=== PATIENT | female | born 2000 | race Caucasian/White ===

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

== ENCOUNTER 2022-01-07 02:29 | Emergency (ER) | payer OTHER, SELFPAY ==
[2022-01-07 02:30] VITALS: BP 147/98; PULSE 100; RESP 18; TEMP 36.9; O2SAT 98; BMI 31.4
--- NOTE | 2022-01-07 02:40 | XR_ITS ---
PROCEDURE INFORMATION: Exam: XR Left Knee Exam date and time: 01/07/2022 2:40 AM Age: 21 years old Clinical indication: Injury or trauma; Fall; Blunt trauma; Knee; Left; Additional info: Skateboard fall TECHNIQUE: Imaging protocol: Radiologic exam of the Left knee. Views: 3 views. COMPARISON: No relevant prior studies available. FINDINGS: Bones/joints: No acute fracture or dislocation. Soft tissues: Mild soft tissue swelling of the anterior infrapatellar region. IMPRESSION: No acute fracture or dislocation.
--- NOTE | 2022-01-07 03:40 | HMH.EDLOEX ---
Discharge Plan Disposition Patient Disposition: Home, Self-Care Chief Complaint: Extremity Injury, Lower Prescriptions Prescriptions: No Action No Known Home Medications Referrals Follow up/Referrals: Yaya Richardson MD [Primary Care Provider] - See instructions Clinical Impressions Clinical Impression: Left knee sprain, Abrasion of knee, left Instructions Patient Instructions: Sprain, DI for Abrasion Discharge ED Provider: Yaya Richardson Lower Extremity Injury HPI General Chief Complaint: Extremity Injury, Lower Stated Complaint: AO@01/07@0215 injured left knee Time Seen by Provider: 01/07/22 03:15 Mode of Arrival: Family Vehicle Source of Information: Patient and Medical Record Limitations: No Limitations Description of Symptoms (Recalled from ER Triage Doc. by RN): Pt c/o pain and abrasion to left knee. States she was skatboarding down a hill when she hit rough ground and fell off. Denies hitting head or any LOC. Injury occured @ 0215. Pt c/o pain with bending knee and bearing weight on LLE. Small abrasion to L hand, pt denies any pain. Small amount of blood leaking from abrasion. History of Present Illness HPI Narrative: acute injury to lt knee this am complaint: knee injury Onset (ago): hour(s) Injury: Left: knee Type of Injury: blunt Place: street/outdoors Severity: moderate Exacerbating factors: movement Context: fall Associated symptoms: able to partially bear weight Other symptoms: none Related Data Home Medications Medication Instructions Recorded Confirmed No Known Home Medications 06/14/21 06/14/21 Allergies Allergy/AdvReac Type Severity Reaction Status Date / Time No Known Allergies Allergy Verified 12/10/20 14:24 PFSH PFSH Social History Smoking Status: Current every day smoker tobacco type: cigarettes packs per day: 1 second hand exposure: Yes alcohol intake: never substance use type: denies use current occupational status: unemployed Travel in the last 8 weeks: None household members: family housing: apartment ROS Obtained: Yes All systems reviewed & no additional complaints except as documented Physical Exam General General appearance: alert Head Head exam: normocephalic Eye Eye exam: Present PERRL and EOMI ENT ENT exam: Present mucous membranes moist Neck Neck exam: Present trachea midline Respiratory Respiratory exam: Absent respiratory distress Cardiovascular Cardiovascular exam: Present regular rate Abdominal Exam Abdominal exam: Present soft Expanded Lower Extremity Exam Left: Hip/Pelvis exam: Present pelvis stable Knee exam: Present tenderness, swelling, abrasion and knee extension intact; Absent full ROM Neurovascular/Tendon exam: Absent pulse deficit Neurological Exam Neurological exam: Present alert and CN II-XII intact Skin Skin exam: Present other (abrasion lt knee ) Medical Decision Making Medical Records Medical records reviewed: Yes I reviewed the patient's medical records. Jose Inquiry Pt receiving controlled substance: No Vital Signs: 01/07/22 02:30 Temperature 98.4 F Temperature Source Oral Pulse Rate [Right] 100 H Respiratory Rate 18 Blood Pressure [Right Arm] 147/98 H Blood Pressure Mean [Right Arm] 114 Blood Pressure Source [Right Arm] Automatic Cuff 02 Sat by Pulse Oximetry 98 Oxygen Delivery Method Room Air Lab Data Lab results reviewed: Yes I reviewed the patient's lab results. Orders (Tests/Meds): ORDERS Category Date Time Status XR knee LT 3V Stat Exams 01/07/22 02:40 Completed Radiology Data #1: Image(s): Knee Image Reviewed: Yes I have reviewed radiologist's interpretation Preliminary Findings: No Fracture Seen Medical Decision Narrative: has acute lt knee injury with abrasion but no fx Critical Care Time Critical Care Time Critical Care Time: No Attestation: On 01/07/22, the high probability of a clinically
[2022-01-07 04:25] VITALS: BP 140/80; PULSE 88; RESP 16; TEMP 36.8; O2SAT 99
== END 2022-01-07 04:27 | disposition home or self-care (01) ==
PROVIDERS: Emergency Provider Emergency Medicine; PCP Emergency Medicine
DX: S83.92XA Sprain of unspecified site of left knee, initial encounter (principal); S80.212A Abrasion, left knee, initial encounter; W18.39XA Other fall on same level, initial encounter; Y93.51 Activity, roller skating (inline) and skateboarding
CPT/HCPCS: 73562; 99283

== ENCOUNTER 2022-05-03 17:54 | Emergency (ER) | payer OTHER, SELFPAY ==
[2022-05-03 17:55] VITALS: BP 133/89; PULSE 68; RESP 16; TEMP 36.8; O2SAT 96; BMI 30.1
--- NOTE | 2022-05-03 18:48 | PC.NURSE ---
checked on pt in lobby advised we had emergencies, we would get them back as soon as possible
--- NOTE | 2022-05-03 19:17 | CT_ITS ---
PROCEDURE INFORMATION: Exam: CT Abdomen And Pelvis With Contrast Exam date and time: 05/03/2022 7:42 PM Age: 21 years old Clinical indication: Abdominal pain; Additional info: Left sided abd pain that radiates into lower back TECHNIQUE: Imaging protocol: Computed tomography of the abdomen and pelvis with contrast. Radiation optimization: All CT scans at this facility use at least one of these dose optimization techniques: automated exposure control; mA and/or kV adjustment per patient size (includes targeted exams where dose is matched to clinical indication); or iterative reconstruction. Contrast material: ISOVUE; Contrast volume: 75 ml; Contrast route: IV; COMPARISON: CT ABDOMEN PELVIS W CON 01/01/2020 8:55 PM FINDINGS: Liver: Normal. No mass. Gallbladder and bile ducts: No calcified stones. No ductal dilation. Pancreas: Normal enhancement. No ductal dilation. Spleen: No splenomegaly. Adrenal glands: No mass. Kidneys and ureters: No hydronephrosis. Stomach and bowel: No obstruction. No mucosal thickening. Appendix: No evidence of appendicitis. Intraperitoneal space: No significant fluid collection. No free air. Vasculature: No abdominal aortic aneurysm. Lymph nodes: No enlarged lymph nodes. Urinary bladder: No acute abnormality. Reproductive: No acute abnormality. Bones/joints: No acute fracture. Soft tissues: No soft tissue swelling. IMPRESSION: No acute findings.
[2022-05-03 19:22] LABS: Microscopic, Urine URINE MICROSCOPIC (MICROSCOPIC)
[2022-05-03 19:23] LABS: Appearance,Urine CLEAR (Clear); Blood, Urine 2+ (Negative); Color,Urine YELLOW (Yellow); Glucose,Urine (UA) Negative (Negative); Ketones,Urine TRACE (Negative); Leukocyte Esterase,Urine Negative (Negative); Nitrate,Urine Negative (Negative); Protein,Urine TRACE (Negative); Specific Gravity, Urine >= 1.030 (1.005-1.030); Urobilinogen,Urine 0.2 EU/dl (0.2)
[2022-05-03 19:24] LABS: Bilirubin,Urine 1+ (Negative)
[2022-05-03 19:25] LABS: Urine Pregnancy, HCG Qual. Negative (Negative)
[2022-05-03 19:32] VITALS: BP 108/61; PULSE 100; O2SAT 98
[2022-05-03 19:35] LABS: Basophils # 0.1 K/mm3 (0-0.2); Basophils % 0.8 % (0.1-2.0); Eosinophils # 0.4 K/mm3 (0.0-0.4); Eosinophils % 4.5 % (0.1-12.0); Hematocrit 39.6 % (37.0-47.0); Hemoglobin 13.4 g/dL (12.2-16.2); Lymphocytes # 2.5 K/mm3 (0.7-4.5); Mean Corpuscular HGB Conc 33.9 g/dL (31.8-35.4); Mean Corpuscular Hemoglobin 30.7 pg (27.0-31.2); Mean Corpuscular Volume 90.4 fl (81-99); Mean Platelet Volume 7.7 fl (7.4-10.4); Monocytes # 0.4 K/mm3 (0.1-1.0); Monocytes % 3.9 % (1.7-9.3); Neutrophils # 5.9 K/mm3 (1.8-7.8); Neutrophils % 63.8 % (37.0-80.0); Platelet Count 364 K/mm3 (142-424); Red Blood Count 4.38 M/mm3 (4.20-5.40); Red Cell Distribution Width 13.3 % (11.5-17.5); White Blood Count 9.2 K/mm3 (4.5-13.0)
[2022-05-03 19:37] LABS: Bacteria,Urine Trace /lpf; WBC,Urine Occasional #/hpf (0-3)
[2022-05-03 19:39] LABS: Chloride 108 mmol/L (98-107); Potassium 3.9 mmoL/L (3.5-5.1); Sodium 143 mmol/L (136-145)
--- NOTE | 2022-05-03 19:39 | PC.NURSE ---
Pt gone to RAD via wheelchair
[2022-05-03 19:42] LABS: Alanine Aminotransferase 27 U/L (12-78); Albumin Level 4.7 g/dl (3.5-5.0); Albumin/Globulin Ratio 1.4 (1.1-1.8); Alkaline Phosphatase 101 U/L (38-126); Amylase 78 U/L (30-110); Anion Gap 10.9 mEq/L (5-15); Aspartate Amino Transferase 24 U/L (14-36); Bilirubin,Total 0.5 mg/dl (0.2-1.3); Blood Urea Nitrogen 9 mg/dl (7-17); Carbon Dioxide 28 mmol/L (22.0-30.0); Creatinine Clearance Estimated 137 mL/min (50-200); Estimated Glomerular Filt Rate 107 ml/min (>60); GFR (African American) 129 ML/MIN (>60); Globulin 3.4 g/dL (1.3-3.2); Glucose 94 mg/dl (74-100); Lipase 51 U/L (23-300); Total Protein,Serum 8.1 g/dl (6.3-8.2)
--- NOTE | 2022-05-03 19:52 | PC.NURSE ---
Pt back from RAD
[2022-05-03 21:30] VITALS: BP 124/76; PULSE 76; O2SAT 100
[2022-05-03 22:30] VITALS: BP 123/83; PULSE 72; O2SAT 100
--- NOTE | 2022-05-03 23:19 | PC.NURSE ---
Pt called nurse station from her room and wanted to know how much longer it would be because she needs to get home to her son. After speaking with pt was informed that he would be in her room soon
--- NOTE | 2022-05-03 23:27 | HMH.EDABDPAI ---
Discharge Plan Disposition Patient Disposition: Home, Self-Care Chief Complaint: Abdominal Pain Prescriptions Prescriptions: No Action No Known Home Medications Referrals Follow up/Referrals: Eileen Obando APRN [Primary Care Provider] - See instructions Clinical Impressions Clinical Impression: Acute left flank pain Stand Alone Forms Stand Alone Forms: Work/School Release Instructions Patient Instructions: DI for Acute Abdominal Pain, DI for Flank Pain Discharge ED Provider: Yaya Richardson Abdominal Pain HPI General Chief Complaint: Abdominal Pain Stated Complaint: left side and back pain Time Seen by Provider: 05/03/22 23:27 Mode of Arrival: Ambulatory Source of Information: Patient and Medical Record Limitations: No Limitations Description of Symptoms (Recalled from ER Triage Doc. by RN): pt c/o lt flank pain and llq pain radiating to groin that started last night with diarrhea History of Present Illness HPI narrative: acute lt flank pain with rad to groin - has episode of loose stool- no vag bleeding MD complaint: abdominal pain Onset (ago): hour(s) Consistency: now resolved Location: L flank Severity: moderate Quality: sharp Radiation: L flank Associated symptoms: denies other symptoms Related Data Home Medications Medication Instructions Recorded Confirmed No Known Home Medications 06/14/21 06/14/21 Allergies Allergy/AdvReac Type Severity Reaction Status Date / Time No Known Allergies Allergy Verified 12/10/20 14:24 [facility] Disclaimer: The information contained in this section may have been updated after the patient was seen, as this information can be updated by other users. Social History Smoking Status: Current every day smoker tobacco type: cigarettes packs per day: 1 second hand exposure: Yes alcohol intake: never substance use type: denies use current occupational status: unemployed Travel in the last 8 weeks: None household members: family housing: apartment ROS Obtained: Yes All systems reviewed & no additional complaints except as documented Physical Exam General General appearance: alert Head Head exam: atraumatic Eye Eye exam: Present PERRL and EOMI ENT ENT exam: Present mucous membranes moist Neck Neck exam: Present trachea midline Respiratory Respiratory exam: Present normal lung sounds bilaterally; Absent respiratory distress Cardiovascular Cardiovascular exam: Present regular rate Abdominal Exam Abdominal exam: Present soft; Absent tenderness or guarding Extremities Exam Extremities exam: Present full ROM Back Exam Back exam: Absent CVA tenderness (L) Neurological Exam Neurological exam: Present alert, oriented X3 and CN II-XII intact Psychiatric Psychiatric exam: Present normal affect Skin Skin exam: Absent rash Medical Decision Making Medical Records Medical records reviewed: Yes I reviewed the patient's medical records. Ojse Inquiry Pt receiving controlled substance: No Vital Signs: 05/03/22 17:55 05/03/22 19:32 05/03/22 21:30 Temperature 98.3 F Temperature Source Oral Pulse Rate 100 H 76 Pulse Rate [Right] 68 Respiratory Rate 16 Blood Pressure 108/61 L 124/76 Blood Pressure [Right Arm] 133/89 Blood Pressure Mean [Right Arm] 103 02 Sat by Pulse Oximetry 96 98 100 Oxygen Delivery Method Room Air Room Air 05/03/22 22:30 Temperature Temperature Source Pulse Rate 72 Pulse Rate [Right] Respiratory Rate Blood Pressure 123/83 Blood Pressure [Right Arm] Blood Pressure Mean [Right Arm] 02 Sat by Pulse Oximetry 100 Oxygen Delivery Method Room Air Lab Data Lab results reviewed: Yes I reviewed the patient's lab results. Lab Results 05/03/22 19:12: Urine Color Yellow, Urine Appearance Clear, Urine pH 6.0, Ur Specific [place] >= 1.030, Urine Protein Trace, Urine Glucose (UA) Negative, Urine Ketones Trace, Urine Blood 2+, Urine Nitrate Negative, Urine Bilirubin 1+
[2022-05-03 23:32] VITALS: BP 129/87; PULSE 74; RESP 16; TEMP 36.7; O2SAT 99
== END 2022-05-03 23:36 | disposition home or self-care (01) ==
PROVIDERS: Family Medicine; Emergency Provider Emergency Medicine; PCP Nurse Practitioner Family
DX: R10.32 Left lower quadrant pain (principal); R10.2 Pelvic and perineal pain; R19.7 Diarrhea, unspecified; F17.210 Nicotine dependence, cigarettes, uncomplicated
CPT/HCPCS: 74177; 80053; 81001; 81025; 82150; 83690; 85025; 96361; 96374; 99285; Q9967

== ENCOUNTER 2022-05-20 23:16 | Emergency (ER) | payer OTHER, SELFPAY ==
[2022-05-20 23:17] VITALS: BP 157/82; PULSE 81; RESP 17; TEMP 36.9; O2SAT 99; BMI 30.1
--- NOTE | 2022-05-20 23:28 | XR_ITS ---
PROCEDURE INFORMATION: Exam: XR Right Ankle Exam date and time: 05/20/2022 11:45 PM Age: 21 years old Clinical indication: Pain; Ankle; Right; Additional info: Pain, swelling after fall TECHNIQUE: Imaging protocol: Radiologic exam of the Right ankle. Views: 3 or more views. COMPARISON: No relevant prior studies available. FINDINGS: Bones/joints: Unremarkable. Soft tissues: Circumferential soft tissue swelling is evident. IMPRESSION: 1. Circumferential soft tissue swelling is evident. 2. No acute fracture identified.
--- NOTE | 2022-05-20 23:28 | XR_ITS ---
PROCEDURE INFORMATION: Exam: XR Right Foot Exam date and time: 05/20/2022 11:47 PM Age: 21 years old Clinical indication: Pain; Foot; Right; Additional info: Pain, swelling after fall TECHNIQUE: Imaging protocol: Radiologic exam of the Right foot. Views: 3 or more views. COMPARISON: CR XR ANKLE RT MIN 3V 05/20/2022 11:45 PM FINDINGS: Bones/joints: Unremarkable. Soft tissues: Unremarkable. IMPRESSION: No acute findings.
[2022-05-20 23:30] VITALS: BP 149/81; PULSE 99; O2SAT 99
--- NOTE | 2022-05-20 23:58 | PC.NURSE ---
pt given an ice pack for her foot/ankle
[2022-05-21] VITALS: BP 136/85; PULSE 83; O2SAT 98
--- NOTE | 2022-05-21 00:05 | HMH.EDLOEX ---
Discharge Plan Disposition Patient Disposition: Home, Self-Care Prescriptions Prescriptions: No Action No Known Home Medications Referrals Follow up/Referrals: Yaya Richardson MD [Primary Care Provider] - See instructions Clinical Impressions Clinical Impression: Ankle sprain and strain Instructions Patient Instructions: DI for Ankle Sprain Discharge ED Provider: Dylan (ED)Yaya Lower Extremity Injury HPI General Chief Complaint: Extremity Injury, Lower Stated Complaint: Right ankle pain; AO 05/19/21 2300 Time Seen by Provider: 05/21/22 00:05 Mode of Arrival: Family Vehicle Source of Information: Patient and Medical Record Limitations: No Limitations Description of Symptoms (Recalled from ER Triage Doc. by RN): Pt c/o R ankle pain after is rolled while going down a few step last night. Pt stated this did occur at work, however is refusing to use workmans comp. She c/o bearing weight to R foot and reports mild swelling surrounding ankle. 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 Tenderness noted to ankle. Pedal pulse strong. History of Present Illness HPI Narrative: rt ankle pain walking down steps with pain and swelling and pain with wt bearing complaint: ankle injury Onset (ago): day(s) Injury: Right: ankle Type of Injury: eversion Place: work Severity: moderate Exacerbating factors: weight bearing and movement Context: walking Associated symptoms: swelling and able to partially bear weight Other symptoms: none Related Data Home Medications Medication Instructions Recorded Confirmed No Known Home Medications 06/14/21 05/20/22 Allergies Allergy/AdvReac Type Severity Reaction Status Date / Time No Known Allergies Allergy Verified 12/10/20 14:24 [facility] Disclaimer: The information contained in this section may have been updated after the patient was seen, as this information can be updated by other users. Social History Smoking Status: Current every day smoker tobacco type: cigarettes packs per day: 1 second hand exposure: Yes alcohol intake: never substance use type: denies use current occupational status: unemployed Travel in the last 8 weeks: None household members: family housing: apartment ROS Obtained: Yes All systems reviewed & no additional complaints except as documented Physical Exam General General appearance: alert Head Head exam: normocephalic Eye Eye exam: Present PERRL and EOMI ENT ENT exam: Present mucous membranes moist Neck Neck exam: Present trachea midline Respiratory Respiratory exam: Absent respiratory distress Cardiovascular Cardiovascular exam: Present regular rate Abdominal Exam Abdominal exam: Present soft Expanded Lower Extremity Exam Right: Lower leg exam: Present Achilles tendon intact Ankle exam: Present tenderness and swelling; Absent full ROM Foot/toe exam: Present normal inspection Neurological Exam Neurological exam: Present alert, oriented X3 and CN II-XII intact Psychiatric Psychiatric exam: Present normal affect Skin Skin exam: Absent rash Medical Decision Making Medical Records Medical records reviewed: Yes I reviewed the patient's medical records. Jose Inquiry Pt receiving controlled substance: No Vital Signs: 05/20/22 23:17 05/20/22 23:30 Temperature 98.4 F Temperature Source Oral Pulse Rate 99 H Pulse Rate [Right] 81 Respiratory Rate 17 Blood Pressure 149/81 H Blood Pressure [Right Arm] 157/82 H Blood Pressure Mean [Right Arm] 107 02 Sat by Pulse Oximetry 99 99 Oxygen Delivery Method Room Air Lab Data Lab results reviewed: Yes I reviewed the patient's lab results. Orders (Tests/Meds): ED MEDICATIONS Discontinued Medications Generic Name Dose Route Start Last Admin Trade Name Freq PRN Reason Stop Dose Admin Acetaminophen 650 mg 05/20/22 23:29 05/20/22 23:59 Acetaminophen 325mg Tab PO 05/20/22 23:30 650 mg ONCE ONE Administration ORDERS Cat
[2022-05-21 00:31] VITALS: BP 135/85; PULSE 82; RESP 18; TEMP 36.6; O2SAT 99
== END 2022-05-21 00:48 | disposition home or self-care (01) ==
PROVIDERS: Emergency Provider Emergency Medicine; PCP Emergency Medicine
DX: S93.401A Sprain of unspecified ligament of right ankle, initial encounter (principal); S96.911A Strain of unspecified muscle and tendon at ankle and foot level, right foot, initial encounter; F17.210 Nicotine dependence, cigarettes, uncomplicated; X50.0XXA Overexertion from strenuous movement or load, initial encounter; Y99.0 Civilian activity done for income or pay
CPT/HCPCS: 73610; 73630; 99284

== ENCOUNTER 2022-10-29 20:01 | Emergency (ER) | payer OTHER, SELFPAY ==
[2022-10-29 20:15] VITALS: BP 116/68; PULSE 96; RESP 14; TEMP 36.8; O2SAT 98; BMI 28.3
--- NOTE | 2022-10-29 20:21 | PC.NURSE ---
Dr. Robbins at [facility]
--- NOTE | 2022-10-29 20:26 | US_ITS ---
PROCEDURE INFORMATION: Exam: US Pelvis, Transvaginal, US Duplex Artery and Vein of the Reproductive Organs, Complete Exam date and time: 10/29/2022 9:01 PM Age: 21 years old Clinical indication: Menstruation abnormalities; Excessive menstruation; With irregular cycle; Additional info: Llq pain, h/o cysts LABS AND CLINICAL REPORTS: Last menstrual period start date: 10/26/2022 TECHNIQUE: Imaging protocol: Real-time transvaginal pelvic ultrasound with image documentation. Transvaginal imaging was used for better evaluation of the endometrium, adnexa, and/or cervix. Real-time duplex ultrasound scan of the arterial and venous flow of the abdominal and/or reproductive organs with B-mode, color Doppler flow and spectral waveform analysis with image documentation. Exam focused on the region of clinical concern. Complete exam. Duplex exam was performed to evaluate for vascular conditions. COMPARISON: No relevant recent comparison exams. FINDINGS: Uterus: Uterus measures 8.8 cm x 4.7 cm x 3.5 cm. Endometrial stripe thickness: Heterogeneously thickened endometrium measuring approximately 1.0 cm in the region of the fundus and 1.4 cm in the lower uterine segment/upper endocervical canal demonstrating debris, blood/fluid. Right ovary/adnexa: Right ovary measures 4.2 cm x 3.6 cm x 3.3 cm. Right ovarian volume is 25.8 mL. Simple appearing anechoic unilocular functional cyst/follicle in the RIGHT ovary without septations, debris or mural nodularity measuring 3.2 x 2.7 x 2.6 cm. Left ovary/adnexa: Left ovary measures 2.1 cm x 2.3 cm x 1.5 cm. Left ovarian volume is 3.7 mL. Dominant simple anechoic ovarian functional cyst/follicle measuring approximately 1.9 x 1.3 x 1.5 cm. Intraperitoneal space: No free fluid in the pelvis. IMPRESSION: 1. Heterogeneously thickened endometrium measuring 1 cm in the fundus and 1.4 cm in the lower uterine segment/endocervical canal with debris-blood and fluid. 2. Differential diagnosis includes retained products of conception, hormone replacement therapy, endometrial hyperplasia, endometritis, and less likely endometrial malignancy. 3. Enlarged RIGHT ovary demonstrating anechoic unilocular functional cyst/follicle and a dominant anechoic functional cyst/follicle in the LEFT ovary. 4. Both ovaries demonstrate blood flow on Doppler sonogram.
--- NOTE | 2022-10-29 20:26 | PC.NURSE ---
xray notified of transvaginal ultrasound
--- NOTE | 2022-10-29 20:29 | HMH.EDGENADL ---
Discharge Plan Disposition Patient Disposition: Home, Self-Care Condition: Good Prescriptions Prescriptions: New naproxen 500 mg tablet 500 mg PO BID 7 Days Qty: 14 0RF Referrals Follow up/Referrals: Provider,Referral, [Primary Care Provider] - See instructions Activity Restrictions/Add. Instructions Additional Instructions/Restrictions: You were evaluated in the emergency department today. It is very important that you keep your outpatient follow-up with gynecology in the morning. 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 Return to the emergency department for any new or worsening symptoms, such as increasing bleeding, lightheadedness, or other concerns. Clinical Impressions Clinical Impression: DUB (dysfunctional uterine bleeding) Instructions Patient Instructions: DI for Vaginal Bleeding Discharge ED Provider: Rosalva Robbins General Adult HPI General Chief complaint: Vaginal Bleeding Stated complaint: vaginal bleeding Time Seen by Provider: 10/29/22 20:06 Mode of Arrival: Ambulatory Source of Information: Patient Limitations: No Limitations Description of Symptoms (Recalled from ER Triage Doc. by RN): pt states her LMP was October 20 that lasted approximately 4d then stopped. pt states she woke up on October 25 in a puddle of blood with excessive clots. pt states she has been having abnormal vaginal bleeding since. pt does c/o LLQ abd pain with rebound tenderness. per the chart pt has a hx of ovarian cysts and has an appointment with Dr. Araya tomorrow History of Present Illness HPI narrative: This patient is a 21-year-old female with history of ovarian cysts presenting to the emergency department for evaluation with concern for abnormal vaginal bleeding and left lower quadrant abdominal pain. She states that she has a Nexplanon implant in her arm. Her last menstrual period was October 20 and only lasted for approximately 4 days. It was normal for her. She states that she started bleeding again on 10/25/2022. She states that she has been soaking through a pad every 10 to 20 minutes. She states that she has a lot of clots and it is much heavier than her usual periods. She has a appointment with [facility] tomorrow but decided to come in today for further evaluation and management because she was concerned about the left lower quadrant abdominal pain. She denies any fevers, chills, lightheadedness, or other concerns. Related Data Previous Rx's Medication Instructions Recorded naproxen 500 mg tablet 500 mg PO BID 7 days #14 tabs 10/29/22 Allergies Allergy/AdvReac Type Severity Reaction Status Date / Time No Known Allergies Allergy Verified 10/29/22 20:21 [facility] Disclaimer: The information contained in this section may have been updated after the patient was seen, as this information can be updated by other users. Social History Smoking Status: Current every day smoker tobacco type: cigarettes packs per day: 1 second hand exposure: Yes alcohol intake: current substance use type: denies use current occupational status: unemployed Travel in the last 8 weeks: None household members: family housing: apartment ROS Obtained: Yes All systems reviewed & no additional complaints except as documented 14 point review of systems obtained and negative except as mentioned in HPI. Physical Exam General General appearance: alert and in no apparent distress Head Head exam: atraumatic and normocephalic Eye Eye exam: Present normal appearance, PERRL and EOMI ENT ENT exam: Present normal exam, normal oropharynx and mucous membranes moist Neck Neck exam: Present normal inspection and full ROM Chest Chest inspection: Present normal inspection and symmetric chest wall rise Respiratory Respiratory exam: Present normal lung sounds bilaterally; Absent respiratory distress or wheezes Cardiovascular Cardiovascular exam: Present regu
[2022-10-29 20:52] LABS: Basophils # 0.1 K/mm3 (0-0.2); Basophils % 0.4 % (0.1-2.0); Eosinophils # 0.6 K/mm3 (0.0-0.4); Eosinophils % 4.7 % (0.1-12.0); Hematocrit 36.4 % (37.0-47.0); Hemoglobin 11.6 g/dL (12.2-16.2); Lymphocytes # 2.4 K/mm3 (0.7-4.5); Lymphocytes % 19.6 % (10-50); Mean Corpuscular HGB Conc 31.9 g/dL (31.8-35.4); Mean Corpuscular Hemoglobin 29.9 pg (27.0-31.2); Mean Corpuscular Volume 93.8 fl (81-99); Monocytes # 0.5 K/mm3 (0.1-1.0); Monocytes % 3.6 % (1.7-9.3); Neutrophils # 8.9 K/mm3 (1.8-7.8); Neutrophils % 71.7 % (37.0-80.0); Platelet Count 299 K/mm3 (142-424); Red Blood Count 3.89 M/mm3 (4.20-5.40); Red Cell Distribution Width 13.5 % (11.5-17.5); White Blood Count 12.4 K/mm3 (4.5-13.0)
[2022-10-29 20:58] LABS: Alanine Aminotransferase 24 U/L (12-78); Albumin Level 4.6 g/dl (3.5-5.0); Albumin/Globulin Ratio 1.4 (1.1-1.8); Alkaline Phosphatase 92 U/L (38-126); Anion Gap 12.2 mEq/L (5-15); Aspartate Amino Transferase 24 U/L (14-36); Bilirubin,Total 0.2 mg/dl (0.2-1.3); Blood Urea Nitrogen 14 mg/dl (7-17); Carbon Dioxide 26 mmol/L (22.0-30.0); Chloride 103 mmol/L (98-107); Creatinine Clearance Estimated 150 mL/min (50-200); Estimated Glomerular Filt Rate 127 ml/min (>60); GFR (African American) 154 ML/MIN (>60); Globulin 3.3 g/dL (1.3-3.2); Glucose 81 mg/dl (74-100); Potassium 4.2 mmoL/L (3.5-5.1); Sodium 137 mmol/L (136-145); Total Protein,Serum 7.9 g/dl (6.3-8.2)
--- NOTE | 2022-10-29 21:00 | PC.NURSE ---
Pt gone to u/s via wheelchair. Pt son with pt.
[2022-10-29 21:01] LABS: Activated Partial Thrombo Time 27.6 seconds (22.8-30.6); INR 0.93 (0.9-1.1); Prothrombin Time 10.1 seconds (10.1-12.5)
[2022-10-29 21:09] LABS: HCG Qualitative, Serum Negative (Negative)
[2022-10-29 22:26] VITALS: BP 118/75; PULSE 87; RESP 16; TEMP 36.8; O2SAT 98
== END 2022-10-29 22:27 | disposition home or self-care (01) ==
PROVIDERS: Emergency Provider Emergency Medicine
DX: N93.9 Abnormal uterine and vaginal bleeding, unspecified (principal); R10.32 Left lower quadrant pain; F17.210 Nicotine dependence, cigarettes, uncomplicated
CPT/HCPCS: 76830; 80053; 84703; 85025; 85610; 85730; 86850; 99285

== ENCOUNTER 2024-06-01 13:41 | Emergency (ER) | payer OTHER, SELFPAY ==
--- NOTE | 2024-06-01 13:46 | ED_ITS ---
<Statement entered by Rosalva Robbins DO - 06/01/24 15:58> I was consulted by the LASHAY, and we discussed the complexity of the problems being addressed. I approved the treatment and management plan for this patient's care in the emergency department, thus performing a substantive portion of the medical decision making. Rosalva Robbins DO Discharge Plan Disposition Patient Disposition: Home, Self-Care Condition: Good Prescriptions Prescriptions: No Action No Known Home Medications Referrals Follow up/Referrals: Juan Antonio Nieves MD [Staff Physician] - See instructions Ricky Bose MD [Primary Care Provider] - See instructions Activity Restrictions/Add. Instructions Additional Instructions/Restrictions: Follow-up with your VETERINARY MEDICAL OFFICER within 48 hours. If you have any new or worsening signs or symptoms follow-up with your PCP. Clinical Impressions Clinical Impression: Vaginal bleeding Print Language Print Language: Bulgarian Discharge ED Provider: Bashir Benson General Adult HPI General Chief complaint: OB/Uterine Contractions Stated complaint: vaginal bleeding/cramping. poss miscarriage Time Seen by Provider: 06/01/24 13:46 History of Present Illness HPI narrative: PositivePatient sent by her PCP for evaluation of test and vaginal bleeding. Patient saw her PCP today due to having vaginal bleeding. Patient reports that she is going through a pad every 30 minutes for the last 2 days. Patient reports that she has not had a period for 2 months until the last 24 hours. Patient took 2 home test that were positive. Given the positive test and vaginal bleeding sent to the emergency department by her PCP for transvaginal ultrasound to rule out ectopic . Patient reports that she has some abdominal cramping but no fever chills hemoptysis hematochezia melena nausea vomiting diarrhea. Related Data Home Medications ?Medication ?Instructions ?Recorded ?Confirmed No Known Home Medications 06/01/24 06/01/24 Allergies Allergy/AdvReac Type Severity Reaction Status Date / Time No Known Allergies Allergy Verified 06/01/24 13:11 [facility] Disclaimer: The information contained in this section may have been updated after the patient was seen, as this information can be updated by other users. Social History (Updated 06/01/24 @ 13:12 by DOLLY Todd) Smoking Status: Current some day smoker tobacco type: e-cigarettes second hand exposure: Yes alcohol intake: current substance use type: denies use current occupational status: unemployed Travel in the last 8 weeks: None household members: family housing: apartment Have you lived/traveled outside [place] in past 30 days?: No Contact w/someone who lives/traveled outside US past 30 days?: No Exposure to someone with infectious disease in past 14 days?: No Do you have a fever (greater than 100.4 F or 38 C)?: No Have you tested positive for COVID-19: No Exposed to someone with COVID-19 in past 14 days?: No Do you have a sore throat?: No Do you have a cough?: No Do you have any weakness?: No Do you have any diarrhea?: No Are you experiencing any unusual bleeding?: Yes Do you have any muscle aches/pain?: No Do you have any abdominal pain?: No Are you experiencing loss of taste or smell?: No Other Medical History Have you received the Flu Vaccine for this season: No Have you received the Pneumonia Vaccine: No ROS Obtained: Yes Systems reviewed as appropriate & no additional complaints except as documented Physical Exam General General appearance: alert and in no apparent distress Respiratory Respiratory exam: Present normal lung sounds bilaterally Cardiovascular Cardiovascular exam: Present regular rate Neurological Exam Neurological exam: Present alert and oriented X3 Medical Decision Making Medical Records Medical records reviewed: Yes I reviewed the patient's medical records. Screening: Per USPSTF and CDC recommendations, given the prevalence of disease in our region, it is our hospital?s policy to screen for HIV and viral Hepatitis for all patients aged 18 and over and those with ongoing risk factors. Jose Inquiry Pt receiving controlled substance: No Vital Signs: 06/01/24 14:02 06/01/24 14:43 06/01/24 15:44 Temperature 98.4 F 98.4 F Temperature Source Oral Pulse Rate 85 92 H Pulse Rate [Left] 89 Respiratory Rate 14 16 Blood Pressure 117/91 H 137/91 H Blood Pressure [Right Arm] 142/103 H Blood Pressure Mean [Right Arm] 116 Blood Pressure Source [Right Arm] Automatic Cuff Blood Pressure Position [Right Arm] Standing 02 Sat by Pulse Oximetry 99 100 Oxygen Delivery Method Room Air Room Air Lab Data Lab results reviewed: Yes I reviewed the patient's lab results. Lab Results 06/01/24 13:46: Urine Color [place], Urine Appearance Cloudy, Urine pH 6.0, Ur Specific [place] >= 1.030, Urine Protein Trace, Urine Glucose (UA) Negative, Urine Ketones Negative, Urine Blood 3+ A, Urine Nitrate Negative, Urine Bilirubin Negative, Urine Urobilinogen 0.2, Ur Leukocyte Esterase Negative, Urine RBC 50-100, Urine WBC 3-5, Ur Squamous Epith Cells 3-5, Urine HCG, Qual Negative 06/01/24 13:59: WBC 8.3, RBC 4.38, Hgb 11.9 L, Hct 37.3, MCV 85.2, MCH 27.2, MCHC 31.9, RDW 15.3, Plt Count 400, MPV 9.8, Neut % (Auto) 65.2, Lymph % (Auto) 23.5, [place] % (Auto) 7.1, Eos % (Auto) 3.1, Baso % (Auto) 0.7, Neut # (Auto) 5.4, Lymph # (Auto) 2.0, [place] # (Auto) 0.6, Eos # (Auto) 0.3, Baso # (Auto) 0.1, Sodium 138, Potassium 4.1, Chloride 105, Carbon Dioxide 25, Anion Gap 12.1, BUN 11, Creatinine 0.70, Estimated Creat Clear 177, Estimated GFR 105, Est GFR ( Amer) 127, Glucose 89, Calcium 9.4, Total Bilirubin 0.2, AST 32, ALT 37, Alkaline Phosphatase 97, Total Protein 8.2, Albumin 4.8, Globulin 3.4 H, Albumin/Globulin Ratio 1.4, HCG, Quant < 2, HCV Ab MOHIT w/Rflx PCR Qn Negative, HIV Ag/Ab Combo Qual Negative 06/01/24 13:59 06/01/24 13:59 Orders (Tests/Meds): ED MEDICATIONS Discontinued Medications Generic Name Dose Route Start Last Admin Trade Name Freq PRN Reason Stop Dose Admin Sodium Chloride 1,000 mls @ 999 mls/hr 06/01/24 13:47 06/01/24 15:15 Sod Chlor 0.9% 1000ml Bag IV 06/01/24 14:47 999 mls/hr .Q1H1M ONE Administration ORDERS Category Date Time Status US transvaginal Stat Exams 06/01/24 13:47 Completed CBC w/Auto Diff [Complete Blood Count Auto Diff] Stat Lab 06/01/24 13:59 Completed CMP [Comprehensive Metabolic Panel] Stat Lab 06/01/24 13:59 Completed HCG,Quantitative Stat Lab 06/01/24 13:59 Completed HIV Combo Stat Lab 06/01/24 13:59 Completed Hepatitis C Ab Qual. W/ RFX Stat Lab 06/01/24 13:59 Completed UA [Urinalysis and Microscopic] Stat Lab 06/01/24 13:46 Completed Urine , HCG Qual. Stat Lab 06/01/24 13:46 Completed Medical Decision Narrative: In summary patient is a 21-year-old female who presents to the emergency department for evaluation of vaginal bleeding. Patient is initially hypertensive at 142/103 but with a heart rate of 89 normal sinus rhythm on the bedside monitor breathing 14 times a minute satting at 99% on room air upon arrival, afebrile at 98.4. Physical exam is remarkable for mild lower abdominal discomfort on palpation but no rebound no guarding no rigidity. Bowel sounds normal active.. Differential diagnosis includes ectopic versus vaginal bleeding versus threatened miscarriage etc. Initial workup will be conducted with hematologic labs and transvaginal ultrasound. Initial interventions include Tylenol. Initial workup reviewed by me shows her hematologic labs are nonactionable her urine is negative her quantitative hCG is negative and her transvaginal ultrasound is negative for any acute reproductive pathology via my direct conversation with Dr. Araya of VETERINARY MEDICAL OFFICER. He recommended 48-hour follow-up with VETERINARY MEDICAL OFFICER.. Given this patient is appropriate for discharge with follow-up with 48 hours with VETERINARY MEDICAL OFFICER. Patient does not currently have an VETERINARY MEDICAL OFFICER that she will be referred to Dr. Araya. Critical Care Critical Care Time Critical Care Time: No
--- NOTE | 2024-06-01 13:47 | US_ITS ---
PROCEDURE: US TRANSVAGINAL CLINICAL INDICATION: rlq abd pain COMPARISON: CT CT ABDOMEN PELVIS W CON from 05/03/2022 US US TRANSVAGINAL from 10/29/2022 FINDINGS: Transvaginal sonographic images of the pelvis were obtained. UTERUS: 8.1cm x 4.4cmx 3.4cm anteverted with a combined endometrial thickness of 4.7mm. A scar is seen. LEFT OVARY: 3.4cmx2.4cmx1.6cm with a volume of 6.9ml. There are multiple small peripheral follicles giving the ovary a polycystic appearance. RIGHT OVARY: 2.3cmx 1.9 cmx1.9 cm with a volume of 4.3ml. There are multiple small peripheral follicles giving the ovary a polycystic appearance. Both ovaries are seen and appear polycystic. Doppler flow to both ovaries are seen. There is no fluid in the cul-de-sac. IMPRESSION: 1. Anteverted uterus normal in shape and size. The endometrium is thin. 2. Both ovaries are seen and appear polycystic. There is good blood flow to both ovaries. 3. No fluid in the cul-de-sac. 4. Results were discussed with Dr. Ferrera. Dictated by: Juan Antonio Nieves MD 06/01/2024 14:54 Juan Antonio Nieves MD in OV 06/01/2024 14:54
[2024-06-01 14:02] VITALS: BP 142/103; PULSE 89; RESP 14; TEMP 36.9; O2SAT 99; BMI 39.6
[2024-06-01 14:02] LABS: Microscopic, Urine URINE MICROSCOPIC (MICROSCOPIC)
[2024-06-01 14:05] LABS: Appearance,Urine CLOUDY (Clear); Bilirubin,Urine Negative (Negative); Blood, Urine 3+ (Negative); Color,Urine ORANGE (Yellow); Glucose,Urine (UA) Negative (Negative); Ketones,Urine Negative (Negative); Leukocyte Esterase,Urine Negative (Negative); Nitrate,Urine Negative (Negative); Protein,Urine TRACE (Negative); Specific Gravity, Urine >= 1.030 (1.005-1.030); Urobilinogen,Urine 0.2 EU/dl (0.2)
[2024-06-01 14:06] LABS: Urine Pregnancy, HCG Qual. Negative (Negative)
[2024-06-01 14:08] LABS: Basophils # 0.1 K/mm3 (0-0.2); Basophils % 0.7 % (0.1-2.0); Eosinophils # 0.3 K/mm3 (0.0-0.4); Eosinophils % 3.1 % (0.1-12.0); Hematocrit 37.3 % (37.0-47.0); Hemoglobin 11.9 g/dL (12.2-16.2); Lymphocytes % 23.5 % (10-50); Mean Corpuscular HGB Conc 31.9 g/dL (31.8-35.4); Mean Corpuscular Hemoglobin 27.2 pg (27.0-31.2); Mean Corpuscular Volume 85.2 fl (81-99); Mean Platelet Volume 9.8 fl (7.4-10.4); Monocytes # 0.6 K/mm3 (0.1-1.0); Monocytes % 7.1 % (1.7-9.3); Neutrophils # 5.4 K/mm3 (1.8-7.8); Neutrophils % 65.2 % (37.0-80.0); Platelet Count 400 K/mm3 (142-424); Red Blood Count 4.38 M/mm3 (4.20-5.40); Red Cell Distribution Width 15.3 % (11.5-17.5); White Blood Count 8.3 K/mm3 (4.8-10.8)
[2024-06-01 14:15] LABS: Albumin Level 4.8 g/dl (3.5-5.0); Chloride 105 mmol/L (98-107); Potassium 4.1 mmoL/L (3.5-5.1); Sodium 138 mmol/L (136-145)
[2024-06-01 14:18] LABS: Alanine Aminotransferase 37 U/L (12-78); Albumin/Globulin Ratio 1.4 (1.1-1.8); Alkaline Phosphatase 97 U/L (38-126); Anion Gap 12.1 mEq/L (5-15); Aspartate Amino Transferase 32 U/L (14-36); Bilirubin,Total 0.2 mg/dl (0.2-1.3); Blood Urea Nitrogen 11 mg/dl (7-17); Calcium 9.4 mg/dl (8.4-10.2); Carbon Dioxide 25 mmol/L (22.0-30.0); Creatinine Clearance Estimated 177 mL/min (50-200); Estimated Glomerular Filt Rate 105 ml/min (>60); GFR (African American) 127 ML/MIN (>60); Globulin 3.4 g/dL (1.3-3.2); Glucose 89 mg/dl (74-100); Total Protein,Serum 8.2 g/dl (6.3-8.2)
--- NOTE | 2024-06-01 14:26 | PC.NURSE ---
pt to US
--- NOTE | 2024-06-01 14:41 | PC.NURSE ---
pt back from US
[2024-06-01 14:43] VITALS: BP 117/91; PULSE 85; O2SAT 100
[2024-06-01] MEDS: 0.9 % SODIUM CHLORIDE 1000ML 1,000 ML 999 ML IV (15:15)
--- NOTE | 2024-06-01 15:19 | PC.NURSE ---
I rounded on the pt. I took hey a stary, crackers and peanut butter. no other needs voiced. no new complaints. call mendoza in reach.
[2024-06-01 15:31] LABS: HCG,Quantitative < 2 mIU/ml (0-5.42)
[2024-06-01 15:44] VITALS: BP 137/91; PULSE 92; RESP 16; TEMP 36.9; O2SAT 97
[2024-06-01 15:48] LABS: RBC,Urine 50-100 #/hpf (0-3)
[2024-06-01 15:51] LABS: HIV Combo NEGATIVE (Negative)
[2024-06-01 16:01] LABS: Hepatitis C Ab Qual. W/ RFX NEGATIVE (Negative)
== END 2024-06-01 15:49 | disposition home or self-care (01) ==
PROVIDERS: Physician Assistant; Emergency Provider Emergency Medicine; PCP Family Medicine
DX: N93.9 Abnormal uterine and vaginal bleeding, unspecified (principal); R10.30 Lower abdominal pain, unspecified; F17.290 Nicotine dependence, other tobacco product, uncomplicated
CPT/HCPCS: 76830; 80053; 81001; 81025; 84702; 85025; 86803; 87389; 96360; 99284; J7030

== ENCOUNTER 2024-07-19 07:10 | Emergency (ER) | payer OTHER, SELFPAY ==
[2024-07-19 07:21] VITALS: BP 126/66; PULSE 88; RESP 18; TEMP 36.7; O2SAT 98; BMI 43.0
--- NOTE | 2024-07-19 07:37 | PC.NURSE ---
DR CAMPOS AT BEDSIDE
--- NOTE | 2024-07-19 07:40 | XR_ITS ---
FINAL REPORT TECHNIQUE: Left hand 3 views CLINICAL HISTORY: swelling to medial wrist, no known injury COMPARISON: None FINDINGS: LEFT HAND: Three views of the left hand show no evidence of acute displaced fracture or dislocation of the visualized bony architecture. The joint spaces appear normal. IMPRESSION: Unremarkable exam. Reviewed, Interpreted and Dictated by Joaquin Rouse MD Transcribed by Bettye Alcantar Authenticated and . [facility]
--- NOTE | 2024-07-19 07:40 | XR_ITS ---
FINAL REPORT TECHNIQUE: Left wrist 3 views CLINICAL HISTORY: swelling to medial wrist, no known injury COMPARISON: None FINDINGS: LEFT WRIST THREE VIEW FINDINGS: Three views show no evidence of an acute, displaced fracture or dislocation of the visualized bony architecture. The joint spaces appear normal. There is a subtle cystic lesion in the radial styloid. IMPRESSION: No acute bony abnormality identified. Reviewed, Interpreted and Dictated by Joaquin Rouse MD Transcribed by Bettye Alcantar Authenticated and [facility]
--- NOTE | 2024-07-19 07:40 | XR_ITS ---
FINAL REPORT TECHNIQUE: 2 views left forearm CLINICAL HISTORY: swelling to medial wrist, no known injury COMPARISON: None FINDINGS: 2 views of the left forearm were obtained. There is no acute fracture or dislocation. The joints are intact. There are no soft tissue abnormalities. IMPRESSION: No acute process. Reviewed, Interpreted and Dictated by Joaquin Rouse MD Transcribed by Bettye Alcantar Authenticated and [facility]
--- NOTE | 2024-07-19 07:45 | PC.WOUNDNOTE ---
XR AT BEDSIDE
[2024-07-19] MEDS: ACETAMINOPHEN 500MG TAB 1000 MG PO (07:47)
--- NOTE | 2024-07-19 07:53 | ED_ITS ---
Discharge Plan Disposition Patient Disposition: Home, Self-Care Condition: Good Prescriptions Prescriptions: No Action No Known Home Medications Referrals Follow up/Referrals: Provider,Evan Hire [Primary Care Provider] - See instructions Activity Restrictions/Add. Instructions Additional Instructions/Restrictions: You were evaluated in the emergency department today. At this time, x-rays do not demonstrate any broken bones. Follow-up with your primary care provider for reassessment. Rest, ice, and elevate your arm to reduce pain and swelling. Take Tylenol and ibuprofen every 4-6 hours as needed for pain. Return to the emergency department for new or worsening symptoms. Clinical Impressions Clinical Impression: Hematoma of left forearm Stand Alone Forms Stand Alone Forms: Work/School Release Instructions Patient Instructions: DI for Hematoma (Bruise), DI for Acute Pain -- Adult Print Language Print Language: Bengali Discharge ED Provider: Rosalva Robbins General Adult HPI General Chief complaint: PAIN Stated complaint: Left wrist swelling/pain Time Seen by Provider: 07/19/24 07:23 Mode of Arrival: Ambulatory Source of Information: Patient Description of Symptoms (Recalled from ER Triage Doc. by RN): PT C/O LEFT WRIST PAIN AFTER MOVING FURNITURE LAST NIGHT History of Present Illness HPI narrative: This patient is a 23-year-old female who has history of obesity presenting to the emergency department for evaluation concern for left forearm/wrist pain after moving furniture last night. She cannot think of any specific injuries, but she woke up with soreness this morning. She has a bruise to the ulnar as pect of her left distal forearm/wrist. Pain is worse with movement. No numbness or tingling. No open wounds. No other concerns or complaints, no other injuries noted. Related Data Home Medications ?Medication ?Instructions ?Recorded ?Confirmed No Known Home Medications 06/01/24 07/19/24 Allergies Allergy/AdvReac Type Severity Reaction Status Date / Time Penicillins Allergy Unknown Verified 07/19/24 07:45 allergy reaction [facility] Disclaimer: The information contained in this section may have been updated after the patient was seen, as this information can be updated by other users. Medical History Heart murmur Surgical History H/O: Family History Other No significant family history Social History Smoking Status: Current every day smoker tobacco type: e-cigarettes second hand exposure: Yes alcohol intake: current substance use type: denies use current occupational status: unemployed Travel in the last 8 weeks: None household members: family housing: apartment Have you lived/traveled outside US in past 30 days?: No Contact w/someone who lives/traveled outside US past 30 days?: No Exposure to someone with infectious disease in past 14 days?: No Do you have a fever (greater than 100.4 F or 38 C)?: No Have you tested positive for COVID-19: No Exposed to someone with COVID-19 in past 14 days?: No Do you have a sore throat?: No Do you have a cough?: No Do you have any weakness?: No Do you have any diarrhea?: No Are you experiencing any unusual bleeding?: No Do you have any muscle aches/pain?: No Do you have any abdominal pain?: No Are you experiencing loss of taste or smell?: No Other Medical History Have you received the Flu Vaccine for this season: No Have you received the Pneumonia Vaccine: No ROS Obtained: Yes All systems reviewed & no additional complaints except as documented Physical Exam General General appearance: alert, in no apparent distress and obese Head Head exam: atraumatic and normocephalic Eye Eye exam: Present normal appearance, PERRL and EOMI ENT ENT exam: Present normal exam, normal oropharynx, mucous membranes moist and normal external ear exam Neck Neck exam: Present normal inspection, full ROM and trachea midline; Absent tenderness Chest Chest inspection: Present normal inspection and symmetric chest wall rise; Absent tenderness Respiratory Respiratory exam: Present normal lung sounds bilaterally; Absent respiratory distress, wheezes, stridor or accessory muscle use Cardiovascular Cardiovascular exam: Present regular rate and normal rhythm Abdominal Exam Abdominal exam: Present soft; Absent distention, tenderness or guarding Extremities Exam Extremities exam: Present tenderness (Ulnar aspect of the left distal forearm/wrist), normal capillary refill and other (Hematoma to the ulnar aspect of the left distal forearm/wrist with a an overlying scar that is well-healed. All compartment soft, neurovascularly intact distally); Absent full ROM (Limited range of motion of the left wrist secondary to pain) or edema Back Exam Back exam: Present normal inspection and full ROM; Absent tenderness Neurological Exam Neurological exam: Present alert, oriented X3, CN II-XII intact and normal gait; Absent motor sensory deficit Psychiatric Psychiatric exam: Present normal affect and normal mood Skin Skin exam: Present warm and dry Medical Decision Making Medical Records Medical records reviewed: Yes I reviewed the patient's medical records. Screening: Per USPSTF and CDC recommendations, given the prevalence of disease in our region, it is our hospital?s policy to screen for HIV and viral Hepatitis for all patients aged 18 and over and those with ongoing risk factors. Jose Inquiry Pt receiving controlled substance: No Vital Signs: 07/19/24 07:21 07/19/24 08:28 Temperature 98.0 F 98.2 F Temperature Source Oral Oral Pulse Rate 84 Pulse Rate [Radial] 88 Respiratory Rate 18 18 Blood Pressure 120/70 Blood Pressure [Right Arm] 126/66 Blood Pressure Mean [Right Arm] 86 Blood Pressure Source Automatic Cuff Blood Pressure Source [Right Arm] Automatic Cuff Blood Pressure Position Sitting Blood Pressure Position [Right Arm] Sitting 02 Sat by Pulse Oximetry 98 Oxygen Delivery Method Room Air Room Air Lab Data Lab results reviewed: Yes I reviewed the patient's lab results. Orders (Tests/Meds): ED MEDICATIONS Discontinued Medications Generic Name Dose Route Start Last Admin Trade Name Luisq PRN Reason Stop Dose Admin Acetaminophen 1,000 mg 07/19/24 07:40 07/19/24 07:47 Acetaminophen 500mg Tab PO 07/19/24 07:41 1,000 mg ONCE ONE Administration ORDERS Category Date Time Status Forearm XR left 2 views [XR forearm LT 2V] Stat Exams 07/19/24 07:40 Taken Hand XR left minimum 3 views [XR hand LT min 3V] Stat Exams 07/19/24 07:40 Taken XR wrist LT min 3V Stat Exams 07/19/24 07:40 Completed Medical Decision Narrative: In summary, this patient is a 23-year-old female presenting to the Emergency Department for evaluation of left forearm/wrist pain after moving furniture yesterday. Differential diagnoses considered include but are not limited to fracture, contusion, strain/sprain, hematoma, neurovascular injury, ligamentous injury. Ruling out the most morbid conditions drove assessment. It should be noted patient's history includes obesity which is not at goal therapy. This complicates all aspects of care by increasing patient's risk for morbidity. On exam, the patient has a hematoma with tenderness to palpation of the ulnar aspect of the distal left forearm/wrist, but no open wounds. No redness, warmth, or streaking. She has limited range of motion of the left wrist secondary to pain, but she is neurovascularly intact distally with no appreciable deficits. workup included x-rays of the left hand, wrist, and forearm. Patient was given oral Tylenol for pain. I independently interpreted x-ray prior to the radiologist read and noted no acute fracture. Please see their read for final interpretation. At this time, I feel patient likely has a hematoma/contusion and is appropriate for discharge with instructions for supportive management. Strict return pr ecautions were given as well as instructions for close outpatient follow-up if she has continued pain. Critical Care Critical Care Time Critical Care Time: No
[2024-07-19 08:28] VITALS: BP 120/70; PULSE 84; RESP 18; TEMP 36.8; O2SAT 98
== END 2024-07-19 08:34 | disposition home or self-care (01) ==
PROVIDERS: Emergency Provider Emergency Medicine
DX: S50.12XA Contusion of left forearm, initial encounter (principal); M25.532 Pain in left wrist; M79.602 Pain in left arm; F17.290 Nicotine dependence, other tobacco product, uncomplicated; X50.0XXA Overexertion from strenuous movement or load, initial encounter; Y93.89 Activity, other specified; Y92.9 Unspecified place or not applicable
CPT/HCPCS: 73090; 73110; 73130; 99283

== ENCOUNTER 2024-09-30 10:51 | Emergency (ER) | payer OTHER, SELFPAY ==
[2024-09-30] VITALS (8 sets, daily range): BP systolic 91–124; BP diastolic 56–78; PULSE 68–104; RESP 15–18; TEMP 36.9; O2SAT 97–99; BMI 33.5
--- NOTE | 2024-09-30 11:29 | PC.NURSE ---
Dr Martin at bedside at this time
--- NOTE | 2024-09-30 11:34 | PC.NURSE ---
spoke with jabari at [facility] she said she would send someone to speak with patient
[2024-09-30] MEDS: hydrOXYzine pamoate 25MG CAPSULE 25 MG PO (11:41)
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
--- NOTE | 2024-09-30 12:14 | PC.NURSE ---
felecia galvan at bedside
[2024-09-30 12:18] LABS: Microscopic, Urine URINE MICROSCOPIC (MICROSCOPIC)
[2024-09-30 12:22] LABS: Basophils # 0.1 K/mm3 (0-0.2); Basophils % 0.8 % (0.1-2.0); Eosinophils # 0.1 Kmm3 (0.0-0.4); Eosinophils % 0.9 % (0.1-12.0); Hematocrit 35.3 % (37.0-47.0); Hemoglobin 10.9 g/dL (12.2-16.2); Immature Granulocytes # 0.01 10^3uL; Immature Granulocytes % 0.1 %; Lymphocytes # 1.8 K/mm3 (0.7-4.5); Mean Corpuscular HGB Conc 30.9 g/dL (31.8-35.4); Mean Corpuscular Hemoglobin 25.1 pg (27.0-31.2); Mean Corpuscular Volume 81.1 fl (81-99); Mean Platelet Volume 10.2 fl (7.4-10.4); Monocytes # 0.7 K/mm3 (0.1-1.0); Monocytes % 8.3 % (1.7-9.3); Neutrophils # 5.3 K/mm3 (1.8-7.8); Neutrophils % 66.9 % (37.0-80.0); Nucleated Red Blood Cells # 0 10^3/uL; Nucleated Red Blood Cells % 0 %; Platelet Count 444 K/mm3 (142-424); Red Blood Count 4.35 M/mm3 (4.20-5.40); Red Cell Distribution Width 14.5 % (11.5-17.5); Red Cell Distribution Width-SD 42.5 fL; White Blood Count 7.8 K/mm3 (4.8-10.8)
[2024-09-30 12:25] LABS: Appearance,Urine CLEAR (Clear); Bilirubin,Urine Negative (Negative); Blood, Urine Negative (Negative); Color,Urine YELLOW (Yellow); Glucose,Urine (UA) Negative (Negative); Ketones,Urine Negative (Negative); Leukocyte Esterase,Urine TRACE (Negative); Nitrate,Urine Negative (Negative); Protein,Urine Negative (Negative)
--- NOTE | 2024-09-30 12:27 | PC.NURSE ---
notified that a visitor had come. stated that pt could have a visitor
[2024-09-30 12:28] LABS: Blood Urea Nitrogen 4 mg/dl (7-17); Calcium 9.5 mg/dl (8.4-10.2); Carbon Dioxide 26 mmol/L (22.0-30.0); Chloride 102 mmol/L (98-107); Creatinine Clearance Estimated 181 mL/min (50-200); Estimated Glomerular Filt Rate 125 ml/min (>60); GFR (African American) 151 ML/MIN (>60); Glucose 100 mg/dl (74-100); HCG Qualitative, Serum Negative (Negative); Sodium 140 mmol/L (136-145)
[2024-09-30 12:29] LABS: Acetaminophen < 10 ug/ml (10-30); Salicylate < 1.0 mg/dL (2.0-20.0)
[2024-09-30 12:32] LABS: Ethyl Alcohol 120 mg/dl (0-10)
--- NOTE | 2024-09-30 12:38 | ECG_ITS ---
APPROVED REPORT Exam: Resting ECG HR:91 bpm ECG Measurements Heart Rate 91 AXES NM 174 P 54 QRSd 89 QRS 43 QT 352 T 47 QTc 400 Conclusion SINUS RHYTHM LOW QRS VOLTAGE IN PRECORDIAL LEADS [QRS DEFLECTION < 1.0 mV IN CHEST LEADS] BORDERLINE ECG UNCONFIRMED REPORT Electronically signed by : Bijal Martin, 09/30/2024 15:38:39
[2024-09-30 12:40] LABS: Barbiturates Screen,Urine Negative ng/ml (<200)
[2024-09-30 12:41] LABS: Amphetamine/Metha Screen,Urine Negative ng/ml (<1000); Benzodiazepines Screen,Urine Negative ng/ml (<200)
[2024-09-30 12:42] LABS: Methadone Screen,Urine Negative ng/ml (<300)
[2024-09-30 12:43] LABS: Cannabinoid Screen,Urine Negative ng/ml (<50); Cocaine Screen,Urine Negative ng/ml (<300)
[2024-09-30 12:44] LABS: Opiate Screen,Urine Negative ng/ml (<300)
--- NOTE | 2024-09-30 12:44 | PC.NURSE ---
Called [facility] and talked to Intake person for Behavioral health. They asked for a transfer packet to be faxed to them and then they would call back. Currently faxing the records now.
[2024-09-30 12:45] LABS: Phencyclidine Screen,Urine Negative ng/ml (<25)
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
--- NOTE | 2024-09-30 12:56 | PC.NURSE ---
Patients records faxed to [facility], waiting for a call back.
--- NOTE | 2024-09-30 13:41 | PC.NURSE ---
Report called to Agusto Caban RN at [facility]
--- NOTE | 2024-09-30 13:42 | PC.NURSE ---
EMS called for transport
[2024-09-30 15:36] LABS: Bacteria,Urine Trace /lpf; Mucus,Urine Trace /lpf; WBC,Urine Occasional #/hpf (0-3)
== END 2024-09-30 14:01 ==
PROVIDERS: Emergency Provider Student in an Organized Health Care Education/Training Program
DX: T14.91XA Suicide attempt, initial encounter (principal); F17.210 Nicotine dependence, cigarettes, uncomplicated; F90.9 Attention-deficit hyperactivity disorder, unspecified type
CPT/HCPCS: 80048; 80307; 80320; 80329; 81001; 84703; 85025; 93005; 99285

== ENCOUNTER 2024-12-30 23:10 | Emergency (ER) | payer OTHER, SELFPAY ==
[2024-12-31 00:25] VITALS: BP 137/106; PULSE 84; RESP 16; TEMP 37; O2SAT 100; BMI 31.9
[2024-12-31 00:32] VITALS: BP 137/106; PULSE 84; RESP 16; TEMP 37; O2SAT 100
[2024-12-31 00:33] VITALS: PULSE 84
[2024-12-31 00:47] LABS: Urine Pregnancy, HCG Qual. Negative (Negative)
--- NOTE | 2024-12-31 00:56 | XR_ITS ---
PROCEDURE INFORMATION: Exam: XR Left Foot Exam date and time: 12/31/2024 1:27 AM Age: 24 years old Clinical indication: Injury or trauma; Fall; Blunt trauma; Foot; Left; Additional info: Fall 3 day ago proximal mid foot pain TECHNIQUE: Imaging protocol: Radiologic exam of the left foot. Views: 3 or more views. COMPARISON: CR XR KNEE LT 3V 01/07/2022 2:40 AM FINDINGS: Bones/joints: No identifiable acute fracture or malalignment. Soft tissues: Unremarkable. IMPRESSION: No identifiable acute osseous findings.
[2024-12-31] MEDS: ACETAMINOPHEN 500MG TAB 1000 MG PO (01:01)
[2024-12-31] MEDS: IBUPROFEN 600 MG TABLET PO (01:01)
--- NOTE | 2024-12-31 01:42 | HMH.EDGENADL ---
Discharge Plan Disposition Patient Disposition: Home, Self-Care Condition: Good Prescriptions Prescriptions: No Action No Known Home Medications Referrals Follow up/Referrals: Provider,Referral, MD [Primary Care Provider, Medical] - See instructions Activity Restrictions/Add. Instructions Additional Instructions/Restrictions: You were evaluated in the ER and are believed to be appropriate for discharge at this time. Wear the hard soled shoe for support until you have been reevaluated by your primary care doctor. Take Tylenol and ibuprofen as needed for pain, do not exceed the recommended dose on the bottle. Drink water and eat a small snack each time you take these medications to avoid side effects. Make an appointment with your primary care doctor for reevaluation in 3 to 4 days. Return to the ER with any new, worsening, or otherwise concerning symptoms. Clinical Impressions Clinical Impression: Foot pain, left Print Language Print Language: Slovak Discharge ED Provider: Bobby Escobar Adult HPI General Chief complaint: Extremity Injury, Lower Stated complaint: Pain L foot Time Seen by Provider: 12/31/24 00:47 Mode of Arrival: Ambulatory Source of Information: Patient Description of Symptoms (Recalled from ER Triage Doc. by RN): PT presents to the ED for evaluation of her L foot. PT stated 3 days ago she tripped and fell and twisted her foot. PT stated it hurts to wiggle her toes and bear weight. PT is able to ambulate per self with no assistance. No swelling or discoloration noted. History of Present Illness HPI narrative: 24-year-old female presents to the ER complaining of left foot pain. Patient reports 3 days ago she was attempting to get over a dog gate when her foot got caught and she tripped, fell, and twisted her foot and ankle. She has been able to walk but reports pain in her left foot when she bears weight and states that hurts to wiggle her toes. No swelling or bruising. She states she took Tylenol and ibuprofen in the afternoon but nothing recently. Patient has no numbness, tingling, or weakness, no reports of other injuries. She is not complaining of ankle pain. She demonstrates to the proximal/mid foot when indicating where her maximal pain is. No other complaints or concerns. Related Data Home Medications ?Medication ?Instructions ?Recorded ?Confirmed No Known Home Medications 06/01/24 07/19/24 Allergies Allergy/AdvReac Type Severity Reaction Status Date / Time Penicillins Allergy Unknown Verified 07/19/24 07:45 allergy reaction [facility] Disclaimer: The information contained in this section may have been updated after the patient was seen, as this information can be updated by other users. Medical History Heart murmur Surgical History H/O: Family History Other No significant family history Social History Smoking Status: Current every day smoker tobacco type: e-cigarettes second hand exposure: Yes alcohol intake: current substance use type: denies use current occupational status: unemployed Travel in the last 8 weeks?: None household members: family housing: apartment Have you lived/traveled outside US in past 30 days?: No Contact w/someone who lives/traveled outside US past 30 days?: No Exposure to someone with infectious disease in past 14 days?: No Do you have a fever (greater than 100.4 F or 38 C)?: No Have you tested positive for COVID-19?: No Exposed to someone with COVID-19 in past 14 days?: No Do you have a sore throat?: No Do you have a cough?: No Do you have any weakness?: No Do you have any diarrhea?: No Are you experiencing any unusual bleeding?: No Do you have any muscle aches/pain?: No Do you have any abdominal pain?: No Are you experiencing loss of taste or smell?: No Other Medical History Have you received the Flu Vaccine for this season: No Have you received the Pneumonia Vaccine: No ROS Obtained: Yes Systems reviewed as appropriate & no additional complaints except as documented Per HPI Physical Exam General General appearance: alert and in no apparent distress Head Head exam: atraumatic and normocephalic Eye Eye exam: Present PERRL and EOMI ENT ENT exam: Present mucous membranes moist Neck Neck exam: Present normal inspection and full ROM Chest Chest inspection: Present symmetric chest wall rise Respiratory Respiratory exam: Absent respiratory distress or stridor Cardiovascular Cardiovascular exam: Present regular rate and normal rhythm Extremities Exam Extremities exam: Present full ROM, tenderness (Left proximal midfoot area with no bruising or swelling), normal capillary refill and other (No tenderness or swelling of the left ankle. Full range of motion of distal left lower extremity.); Absent edema or joint swelling Neurological Exam Neurological exam: Present alert and oriented X3; Absent motor sensory deficit Psychiatric Psychiatric exam: Present normal affect and normal mood Skin Skin exam: Present warm and dry Medical Decision Making Medical Records Medical records reviewed: Yes I reviewed the patient's medical records. Screening: Per USPSTF and CDC recommendations, given the prevalence of disease in our region, it is our hospital?s policy to screen for HIV and viral Hepatitis for all patients aged 18 and over and those with ongoing risk factors. Jose Inquiry Pt receiving controlled substance: No Vital Signs: 12/31/24 00:25 12/31/24 00:32 12/31/24 00:33 Temperature 98.6 F 98.6 F Temperature Source Oral Pulse Rate 84 Pulse Rate [Right] 84 84 Respiratory Rate 16 16 Blood Pressure 137/106 H Blood Pressure [Right Arm] 137/106 H Blood Pressure Mean [Right Arm] 116 02 Sat by Pulse Oximetry 100 100 Oxygen Delivery Method Room Air Room Air Lab Data Lab Results 12/31/24 00:24: Urine HCG, Qual Negative Orders (Tests/Meds): ED MEDICATIONS Discontinued Medications Generic Name Dose Route Start Last Admin Trade Name Luisq PRN Reason Stop Dose Admin Acetaminophen 1,000 mg 12/31/24 00:57 12/31/24 01:01 Acetaminophen 500mg Tab PO 12/31/24 00:58 1,000 mg ONCE ONE Administration Ibuprofen 600 mg 12/31/24 00:57 12/31/24 01:01 Ibuprofen 600 Mg Tablet PO 12/31/24 00:58 600 mg ONCE ONE Administration ORDERS Category Date Time Status Foot XR left minimum 3 views [XR foot LT min 3V] Stat Exams 12/31/24 00:56 Completed Urine , HCG Qual. Stat Lab 12/31/24 00:24 Completed Medical Decision Narrative: In summary, this 24-year-old female with history of depression, ovarian cyst presents to the emergency department today with left foot pain. On initial evaluation patient is hemodynamically stable, afebrile, overall well-appearing, physical exam only notable for mild tenderness to palpation of the left proximal midfoot with no bruising, deformity, swelling, or other acute traumatic findings. Differential diagnosis includes but is not limited to stress fracture, displaced fracture, dislocation, soft tissue injury. There is no evidence of injury to the ankle. Patient is neurovascularly intact. Based on these concerns, I ordered urine test, x-ray left foot. Labs reviewed by me demonstrate negative test. X-ray left foot personally interpreted does not demonstrate acute osseous injury, see radiology read for final interpretation. Radiology read in agreement. Because patient still has some midfoot discomfort though there is no fracture I placed her on a hard soled shoe for support when ambulating. She was given instructions on continued symptomatic monitoring and management, follow-up with PCP, and strict return precautions for the ER. She indicated understanding and the patient was discharged in stable condition. Critical Care Critical Care Time Critical Care Time: No
[2024-12-31 02:45] VITALS: BP 119/100; PULSE 87; RESP 16; TEMP 37.2; O2SAT 97
== END 2024-12-31 02:46 | disposition home or self-care (01) ==
PROVIDERS: Emergency Provider Emergency Medicine
DX: M79.672 Pain in left foot (principal); X50.1XXA Overexertion from prolonged static or awkward postures, initial encounter
CPT/HCPCS: 73630; 81025; 99283; 99284

== ENCOUNTER 2025-01-14 01:32 | Emergency (ER) | payer OTHER, SELFPAY ==
--- OUTSIDE RECORDS SUMMARY | 2025-01-14 01:41 | XMS_ITS | Patient Health Record ---
Author Organization [facility] Address [address] [place] [id number] Support Name Relationship Address Phone VENESSA GUO Guarantor Unknown Reason For Referral No Information Medications Medication SIG (Take, Route, Frequency, Duration) Notes Start Date End Date Status LINDANE TOPICAL 1% APPLIED TOPICALLY TO SCALP; Duration: 1 DOSE(S) NOW AND REPEAT IN 1 WEEK *Please review for potential replacement for e-prescription and drug interaction check* 05/18/2007 Active Plan Of Treatment No Information
[2025-01-14 01:43] VITALS: BP 124/90; PULSE 78; O2SAT 98
[2025-01-14 01:46] VITALS: BP 124/90; PULSE 80; RESP 16; TEMP 36.8; O2SAT 100; BMI 29.2
--- NOTE | 2025-01-14 01:47 | HMH.EDGENADL ---
Discharge Plan Disposition Patient Disposition: Home, Self-Care Prescriptions Prescriptions: New ondansetron HCl 4 mg tablet 4 mg PO Q8H PRN (Reason: nausea and vomiting) 5 Days Qty: 30 0RF Referrals Follow up/Referrals: Provider,Referral, [Primary Care Provider, Medical] - See instructions Activity Restrictions/Add. Instructions Additional Instructions/Restrictions: Recommend starting either Pepcid or omeprazole [id number]. Recommend following up with your primary care doctor for further evaluation. I sent a prescription for Zofran for nausea. Clinical Impressions Clinical Impression: Abdominal pain, LUQ, Nausea & vomiting Instructions Patient Instructions: DI for Acute Abdominal Pain Print Language Print Language: Slovak Discharge ED Provider: Christ Regalado General Adult HPI General Chief complaint: Abdominal Pain Stated complaint: abd pain, unable to eat Time Seen by Provider: 01/14/25 01:35 History of Present Illness HPI narrative: 24-year-old female without significant medical history presents for left upper quadrant pain and vomiting. She reports that over the last couple of days she has been having intermittent epigastric/left-sided abdominal pain. Every time she eats it hurts worse and she vomits within about 10 to 30 minutes. She denies any blood in the vomit. She reports she has been having normal stools, last bowel movement today. She denies any urinary symptoms. Denies any history of abdominal surgery besides . She does not think she is . She denies any chest pain or shortness of breath. No fever at home. Related Data Previous Rx's ?Medication ?Instructions ?Recorded ondansetron HCl 4 mg tablet 4 mg PO Q8H PRN nausea and 01/14/25 vomiting 5 days #30 tabs Allergies Allergy/AdvReac Type Severity Reaction Status Date / Time Penicillins Allergy Unknown Verified 07/19/24 07:45 allergy reaction [facility] Disclaimer: The information contained in this section may have been updated after the patient was seen, as this information can be updated by other users. Medical History Heart murmur Surgical History H/O: Family History Other No significant family history Social History Smoking Status: Current every day smoker tobacco type: e-cigarettes second hand exposure: Yes alcohol intake: current substance use type: denies use current occupational status: unemployed Travel in the last 8 weeks?: None household members: family housing: apartment Have you lived/traveled outside US in past 30 days?: No Contact w/someone who lives/traveled outside US past 30 days?: No Exposure to someone with infectious disease in past 14 days?: No Do you have a fever (greater than 100.4 F or 38 C)?: No Have you tested positive for COVID-19?: No Exposed to someone with COVID-19 in past 14 days?: No Do you have a sore throat?: No Do you have a cough?: No Do you have any weakness?: No Do you have any diarrhea?: No Are you experiencing any unusual bleeding?: No Do you have any muscle aches/pain?: No Do you have any abdominal pain?: Yes Are you experiencing loss of taste or smell?: No Other Medical History Have you received the Flu Vaccine for this season: No Have you received the Pneumonia Vaccine: No ROS Obtained: Yes All systems reviewed & no additional complaints except as documented Physical Exam General General appearance: alert and in no apparent distress Head Head exam: atraumatic and normocephalic Eye Eye exam: Present normal appearance, PERRL and EOMI ENT ENT exam: Present normal oropharynx and normal external ear exam Neck Neck exam: Present normal inspection and full ROM Chest Chest inspection: Present normal inspection and symmetric chest wall rise; Absent tenderness Respiratory Respiratory exam: Present normal lung sounds bilaterally; Absent respiratory distress Cardiovascular Cardiovascular exam: Present regular rate and normal rhythm Abdominal Exam Abdominal exam: Present soft and tenderness (Mild, left upper quadrant); Absent distention or guarding Extremities Exam Extremities exam: Present normal inspection; Absent edema or joint swelling Back Exam Back exam: Present normal inspection; Absent tenderness Neurological Exam Neurological exam: Present alert and oriented X3; Absent motor sensory deficit Psychiatric Psychiatric exam: Present normal affect and normal mood Skin Skin exam: Present warm, dry and normal color Lymphatic Lymphatic Findings: no adenopathy Medical Decision Making Medical Records Medical records reviewed: Yes I reviewed the patient's medical records. Screening: Per USPSTF and CDC recommendations, given the prevalence of disease in our region, it is our hospital?s policy to screen for HIV and viral Hepatitis for all patients aged 18 and over and those with ongoing risk factors. Jose Inquiry Pt receiving controlled substance: No Jose was queried for this patient: No Vital Signs: 01/14/25 01:43 01/14/25 01:46 01/14/25 02:02 Temperature 98.3 F Temperature Source Oral Pulse Rate 78 71 Pulse Rate [Left] 80 Respiratory Rate 16 Blood Pressure 124/90 129/88 Blood Pressure [Right Arm] 124/90 Blood Pressure Mean 104 98 Blood Pressure Mean [Right Arm] 101 Blood Pressure Source [Right Arm] Automatic Cuff Blood Pressure Position [Right Arm] Sitting 02 Sat by Pulse Oximetry 98 100 99 Oxygen Delivery Method Room Air Lab Data Lab results reviewed: Yes I reviewed the patient's lab results. Lab Results 01/14/25 01:39: WBC 12.0 H, RBC 4.51, Hgb 11.8 L, Hct 36.8 L, MCV 81.6, MCH 26.2 L, MCHC 32.1, RDW 17.4, Plt Count 394, MPV 9.9, Neut % (Auto) 65.4, Lymph % (Auto) 23.4, [place] % (Auto) 7.8, Eos % (Auto) 2.5, Baso % (Auto) 0.6, Neut # (Auto) 7.9 H, Lymph # (Auto) 2.8, [place] # (Auto) 0.9, Eos # (Auto) 0.3, Baso # (Auto) 0.1, Sodium 139, Potassium 3.9, Chloride 102, Carbon Dioxide 25, Anion Gap 15.9 H, BUN 11, Creatinine 0.70, Estimated Creat Clear 152, Estimated GFR 104, Est GFR ( Amer) 125, Glucose 90, Calcium 8.9, Magnesium 1.9, Total Bilirubin 0.6, AST 27, ALT 35, Alkaline Phosphatase 124, Total Protein 7.8, Albumin 4.5, Globulin 3.3 H, Albumin/Globulin Ratio 1.4, Lipase 97, Urine Color Yellow, Urine Appearance Sl cloudy, Urine pH 7.5, Ur Specific [place] 1.015, Urine Protein 1+ A, Urine Glucose (UA) Negative, Urine Ketones Trace, Urine Blood Negative, Urine Nitrate Negative, Urine Bilirubin Negative, Urine Urobilinogen 1.0, Ur Leukocyte Esterase Negative, Urine RBC None, Urine WBC Occasional, Ur Squamous Epith Cells 10-20, Urine Bacteria None, Urine HCG, Qual Negative 01/14/25 01:39 01/14/25 01:39 Orders (Tests/Meds): ED MEDICATIONS Generic Name Dose Route Start Last Admin Trade Name Freq PRN Reason Stop Dose Admin Sodium Chloride 1,000 mls @ 999 mls/hr 01/14/25 01:45 01/14/25 01:54 Sod Chlor 0.9% 1000ml Bag IV 01/14/25 02:45 999 mls/hr .Q1H1M TIFFANY Administration Discontinued Medications Generic Name Dose Route Start Last Admin Trade Name Freq PRN Reason Stop Dose Admin Acetaminophen 1,000 mg 01/14/25 01:45 01/14/25 01:54 Acetaminophen 500mg Tab PO 01/14/25 01:46 500 mg ONCE ONE Administration Belladonna Alkaloids 60 ml 01/14/25 01:45 01/14/25 01:54 Belladonna Alkaloids 60 Ml Ml PO 01/14/25 01:46 60 ml ONCE ONE Administration Ondansetron HCl 4 mg 01/14/25 01:45 01/14/25 01:54 Ondansetron 4mg/2ml Vial IV 01/14/25 01:46 4 mg ONCE ONE Administration ORDERS Category Date Time Status KUB (single view) [XR KUB] Stat Exams 01/14/25 02:19 Taken CBC w/Auto Diff [Complete Blood Count Auto Diff] Stat Lab 01/14/25 01:39 Completed CMP [Comprehensive Metabolic Panel] Stat Lab 01/14/25 01:39 Completed Lipase Stat Lab 01/14/25 01:39 Completed Magnesium Stat Lab 01/14/25 01:39 Completed Urinalysis and Microscopic Stat Lab 01/14/25 01:39 Completed Urine , HCG Qual. Stat Lab 01/14/25 01:39 Completed Medical Decision Narrative: 24-year-old female without significant past medical history presents for couple days of nausea vomiting and left upper quadrant pain. History was obtained via interactive discussion with patient family chart. On arrival, patient is [afebrile, hemodynamically stable, satting appropriately, alert, oriented x4, GCS 15], moving all extremities spontaneously. Full physical exam performed and significant for mild left upper quadrant tenderness. No right upper quadrant tenderness. Differential includes but is not limited to gastroenteritis,, gastritis, reflux, constipation, pyelonephritis, cholecystitis,. Patient was given Tylenol Zofran GI cocktail for symptomatic management and correction of underlying abnormalities. Workup initiated including CBC CMP lipase urine urine KUB. Bedside ultrasound of right upper quadrant was performed which shows a gallstone but no evidence of cholecystitis.. On re-evaluation, patient patient reports marked symptomatic improvement after GI cocktail Laboratory workup independently interpreted by me and significant for mild leukocytosis, normal LFTs, normal lipase, urinalysis without evidence of infection.. Imaging independently interpreted by me and significant for KUB without evidence of constipation bowel obstruction or other serious pathology. See radiology read for full review of final results. CT imaging of the abdomen/pelvis was considered but given the story given low concern for emergent pathology. Given patient history, exam and workup, patient's presentation most likely represents cholelithiasis without cholecystitis. This is likely unrelated to her current left upper quadrant pain which seems more consistent with gastritis/gastroenteritis given the improvement with GI cocktail. Patient was discharged with prescription for Zofran and encouraged to follow-up with PCP for further assessment. Procedures Risk/Benefits of Procedure(s) Were Explained: Yes Limited Ultrasound Indication:: Limited RUQ ultrasound Indication: Abdominal pain Identified structures: -Gallbladder -Gallbladder wall -Liver Findings: Sonographic Dupont sign: Absent Gallstones: Present Sludge: Absent Pericholecystic fluid: Absent Maximal GB wall thickness (mm): 1 Normal Common bile duct width (mm): Unable to visualize Unable to visualize Gallbladder width (cm): 2.2 Normal Gallbladder length (cm): 6.8 Normal Impression: Cholelithiasis without evidence of cholecystitis Images were saved to permanent archive The study was technically adequate CPT 30340-32 This study was performed by al, and I personally interpreted all images/videos. Critical Care Critical Care Time Critical Care Time: No
[2025-01-14 01:50] LABS: Microscopic, Urine URINE MICROSCOPIC (MICROSCOPIC)
[2025-01-14 01:52] LABS: Hematocrit 36.8 % (37.0-47.0); Hemoglobin 11.8 g/dL (12.2-16.2); Immature Granulocytes % 0.3 %; Mean Corpuscular HGB Conc 32.1 g/dL (31.8-35.4); Mean Corpuscular Hemoglobin 26.2 pg (27.0-31.2); Mean Corpuscular Volume 81.6 fl (81-99); Nucleated Red Blood Cells % 0 %; Platelet Count 394 K/mm3 (142-424); Red Blood Count 4.51 M/mm3 (4.20-5.40); Red Cell Distribution Width-SD 51.5 fL; White Blood Count 12.0 K/mm3 (4.8-10.8)
[2025-01-14] MEDS: ACETAMINOPHEN 500MG TAB 1000 MG PO (01:54)
[2025-01-14] MEDS: BELLADONNA ALKALOIDS 60 ML ML PO (01:54)
[2025-01-14] MEDS: ONDANSETRON 4MG/2ML VIAL 4 MG IV (01:54)
[2025-01-14] MEDS: 0.9 % SODIUM CHLORIDE 1000ML 1,000 ML 999 ML IV (01:54)
[2025-01-14 01:55] LABS: Bilirubin,Urine Negative (Negative); Color,Urine YELLOW (Yellow); Glucose,Urine (UA) Negative (Negative); Ketones,Urine TRACE (Negative); Leukocyte Esterase,Urine Negative (Negative); PH,Urine 7.5 (5.0-8.5); Protein,Urine 1+ (Negative); Specific Gravity, Urine 1.015 (1.005-1.030); Urobilinogen,Urine 1.0 EU/dl (0.2)
[2025-01-14 01:57] LABS: Urine Pregnancy, HCG Qual. Negative (Negative)
[2025-01-14 02:02] VITALS: BP 129/88; PULSE 71; O2SAT 99
[2025-01-14 02:09] LABS: WBC,Urine Occasional #/hpf (0-3)
[2025-01-14 02:14] LABS: Alanine Aminotransferase 35 U/L (12-78); Albumin Level 4.5 g/dl (3.5-5.0); Albumin/Globulin Ratio 1.4 (1.1-1.8); Alkaline Phosphatase 124 U/L (38-126); Anion Gap 15.9 mEq/L (5-15); Aspartate Amino Transferase 27 U/L (14-36); Bilirubin,Total 0.6 mg/dl (0.2-1.3); Blood Urea Nitrogen 11 mg/dl (7-17); Calcium 8.9 mg/dl (8.4-10.2); Carbon Dioxide 25 mmol/L (22.0-30.0); Chloride 102 mmol/L (98-107); Creatinine Clearance Estimated 152 mL/min (50-200); Creatinine,Serum 0.70 mg/dl (0.52-1.04); Estimated Glomerular Filt Rate 104 ml/min (>60); GFR (African American) 125 ML/MIN (>60); Globulin 3.3 g/dL (1.3-3.2); Glucose 90 mg/dl (74-100); Lipase 97 U/L (23-300); Magnesium 1.9 mg/dl (1.6-2.3); Potassium 3.9 mmoL/L (3.5-5.1); Sodium 139 mmol/L (136-145); Total Protein,Serum 7.8 g/dl (6.3-8.2)
--- NOTE | 2025-01-14 02:19 | XR_ITS ---
PROCEDURE INFORMATION: Exam: XR Abdomen Exam date and time: 01/14/2025 2:34 AM Age: 24 years old Clinical indication: Abdominal pain; Additional info: Luq abd pain TECHNIQUE: Imaging protocol: Radiologic exam of the abdomen. Views: Frontal supine view of the abdomen. 1 View. COMPARISON: CT ABDOMEN PELVIS W CON 05/03/2022 7:42 PM FINDINGS: Gastrointestinal tract: Normal. No bowel dilation. Bones/joints: Unremarkable. IMPRESSION: No acute findings.
[2025-01-14 02:43] VITALS: BP 134/78; PULSE 78; RESP 17; TEMP 37.1; O2SAT 98
== END 2025-01-14 02:48 | disposition home or self-care (01) ==
PROVIDERS: Emergency Provider Emergency Medicine
DX: R10.12 Left upper quadrant pain (principal); R11.2 Nausea with vomiting, unspecified; F17.290 Nicotine dependence, other tobacco product, uncomplicated
CPT/HCPCS: 74018; 80053; 81001; 81025; 83690; 83735; 85025; 96361; 96374; 99284; 99285; J2405; J7030

== ENCOUNTER 2025-01-23 16:19 | Emergency (ER) | payer OTHER, SELFPAY ==
[2025-01-23 16:28] VITALS: BP 144/87; PULSE 67; RESP 20; TEMP 36.3; O2SAT 100; BMI 32.2
[2025-01-23 16:32] VITALS: BP 130/88; PULSE 79; RESP 18; O2SAT 98
[2025-01-23 16:49] LABS: Microscopic, Urine URINE MICROSCOPIC (MICROSCOPIC)
[2025-01-23] MEDS: ONDANSETRON 4MG ODT 4 MG SL (16:51)
[2025-01-23 16:52] LABS: Bilirubin,Urine Negative (Negative); Color,Urine YELLOW (Yellow); Glucose,Urine (UA) Negative (Negative); Ketones,Urine Negative (Negative); Leukocyte Esterase,Urine 1+ (Negative); PH,Urine 7.0 (5.0-8.5); Protein,Urine 1+ (Negative); Specific Gravity, Urine 1.015 (1.005-1.030); Urobilinogen,Urine 0.2 EU/dl (0.2)
--- NOTE | 2025-01-23 16:57 | PC.NURSE ---
1651- this RN asked Dr Monreal if this patient could get some zofran. PO zofran ordered and administered per JUN. patient educated that someone was being discharged, the room needed to be clean and until those 2 things occurred, the patient would need to sit in the lobby. patient stated if this doctor doesn't hurry up ill shove my shoe up his butt . patient made aware that the comment was not necessary and was not going to be tolerated. patient sent to lobby at this time and educated to knock on the triage door and let staff know if any of her symptoms worsen.
--- NOTE | 2025-01-23 17:20 | PC.NURSE ---
patient offered treatment chair 12 and educated that family/friends would have to remain in the lobby if she chose to get started in this treatment room. patient denied at this time and wished to remain in the lobby with her family.
[2025-01-23 17:26] LABS: Amorphous Sediment,Urine 2+ /lpf
[2025-01-23 18:03] LABS: Microscopic, Urine URINE MICROSCOPIC (MICROSCOPIC)
--- NOTE | 2025-01-23 18:10 | XR_ITS ---
PROCEDURE INFORMATION: Exam: XR Chest Exam date and time: 01/23/2025 7:03 PM Age: 24 years old Clinical indication: Other: Luq abdominal pain TECHNIQUE: Imaging protocol: Radiologic exam of the chest. Views: 1 view. COMPARISON: CR XR CHEST PORTABLE 06/19/2020 10:56 AM FINDINGS: Lungs: Stigmata of old granulomatous disease. Lingula opacity seen on CT is difficult to identify on this radiograph. Pleural spaces: Unremarkable. No pleural effusion. No pneumothorax. Heart/Mediastinum: Unremarkable. No cardiomegaly. Bones/joints: Unremarkable. IMPRESSION: Lingula opacity seen on CT is difficult to identify on this radiograph. However, please exclude aspiration and atypical infection clinically.
--- NOTE | 2025-01-23 18:10 | CT_ITS ---
PROCEDURE INFORMATION: Exam: CT Abdomen And Pelvis With Contrast Exam date and time: 01/23/2025 7:00 PM Age: 24 years old Clinical indication: Abdominal pain; Additional info: Luq abdominal pain TECHNIQUE: Imaging protocol: Computed tomography of the abdomen and pelvis with contrast. Radiation optimization: All CT scans at this facility use at least one of these dose optimization techniques: automated exposure control; mA and/or kV adjustment per patient size (includes targeted exams where dose is matched to clinical indication); or iterative reconstruction. Contrast material: ISOVUE; Contrast volume: 75 ml; Contrast route: IV; COMPARISON: CT ABDOMEN PELVIS W CON 05/03/2022 7:42 PM FINDINGS: Lungs: Ground-glass opacity in the lingula could correlate with atypical infection or aspiration pneumonitis. Diaphragm: Small hiatal hernia. Liver: Normal. No mass. Gallbladder and biliary ducts: There is a possible noncalcified stone in the common duct on image 32 series 3. Cholelithiasis. Pancreas: Normal. No ductal dilation. Spleen: Normal. No splenomegaly. Adrenal glands: Normal. No mass. Kidneys and ureters: Nonobstructing left renal calculus. Stomach and bowel: Unremarkable. No obstruction. No mucosal thickening. Appendix: Unremarkable appendix. Intraperitoneal space: Unremarkable. No free air. No significant fluid collection. Vasculature: Unremarkable. No abdominal aortic aneurysm. Lymph nodes: Unremarkable. No enlarged lymph nodes. Urinary bladder: Unremarkable as visualized. Reproductive: Unremarkable as visualized. Bones/joints: Unremarkable. No acute fracture. Soft tissues: Tiny fat containing umbilical hernia. Other findings: Stigmata of old granulomatous disease. IMPRESSION: 1. Ground-glass opacity in the lingula could correlate with atypical infection or aspiration pneumonitis. 2. There is a possible noncalcified stone in the common duct on image 32 series 3. Please exclude biliary obstruction and ascending cholangitis. 3. Cholelithiasis. 4. Nonobstructing left renal calculus.
[2025-01-23 18:13] LABS: Bilirubin,Urine Negative (Negative); Color,Urine YELLOW (Yellow); Glucose,Urine (UA) Negative (Negative); Ketones,Urine Negative (Negative); Leukocyte Esterase,Urine Negative (Negative); PH,Urine 7.0 (5.0-8.5); Protein,Urine TRACE (Negative); Specific Gravity, Urine 1.020 (1.005-1.030); Urobilinogen,Urine 0.2 EU/dl (0.2)
[2025-01-23 18:31] VITALS: BP 147/108; PULSE 62; O2SAT 100
[2025-01-23] MEDS: MORPHINE 4MG/ML SYRINGE 4 MG IV (18:35)
[2025-01-23] MEDS: ONDANSETRON 4MG/2ML VIAL 4 MG IV (18:35)
[2025-01-23 18:39] LABS: Bacteria,Urine 2+ /lpf
[2025-01-23 18:39] LABS: Hematocrit 34.1 % (37.0-47.0); Hemoglobin 10.7 g/dL (12.2-16.2); Immature Granulocytes % 0.3 %; Mean Corpuscular HGB Conc 31.4 g/dL (31.8-35.4); Mean Corpuscular Hemoglobin 26.0 pg (27.0-31.2); Mean Corpuscular Volume 83.0 fl (81-99); Nucleated Red Blood Cells % 0 %; Platelet Count 341 K/mm3 (142-424); Red Blood Count 4.11 M/mm3 (4.20-5.40); Red Cell Distribution Width-SD 52.9 fL; White Blood Count 11.6 K/mm3 (4.8-10.8)
[2025-01-23 18:52] LABS: HCG Qualitative, Serum Negative (Negative)
[2025-01-23 18:58] LABS: Albumin Level 3.9 g/dl (3.5-5.0); Chloride 100 mmol/L (98-107); Potassium 3.9 mmoL/L (3.5-5.1); Sodium 137 mmol/L (136-145)
[2025-01-23 19:00] LABS: Blood Urea Nitrogen 12 mg/dl (7-17); Creatinine Clearance Estimated 168 mL/min (50-200); Creatinine,Serum 0.70 mg/dl (0.52-1.04); Estimated Glomerular Filt Rate 104 ml/min (>60); GFR (African American) 125 ML/MIN (>60)
[2025-01-23] MEDS: SODIUM CHLORIDE 0.9% 10ML SYR (RAD ONLY) 10 ML IV (19:00)
[2025-01-23] MEDS: IOPAMIDOL-370 (76%);100ML BOTTLE 75 ML IV (19:00)
[2025-01-23 19:01] LABS: Alanine Aminotransferase 44 U/L (12-78); Albumin/Globulin Ratio 1.1 (1.1-1.8); Alkaline Phosphatase 113 U/L (38-126); Anion Gap 10.9 mEq/L (5-15); Aspartate Amino Transferase 29 U/L (14-36); Bilirubin,Total 0.5 mg/dl (0.2-1.3); Calcium 8.6 mg/dl (8.4-10.2); Carbon Dioxide 30 mmol/L (22.0-30.0); Globulin 3.4 g/dL (1.3-3.2); Glucose 69 mg/dl (74-100); Lipase 40 U/L (23-300); Total Protein,Serum 7.3 g/dl (6.3-8.2)
--- NOTE | 2025-01-23 19:19 | HMH.EDGENADL ---
Discharge Plan Disposition Patient Disposition: Home, Self-Care Condition: Good Prescriptions Prescriptions: No Action ondansetron HCl 4 mg tablet 4 mg PO Q8H PRN (Reason: nausea and vomiting) 5 Days Qty: 30 0RF Referrals Follow up/Referrals: Meryl Snyder PA [Primary Care Provider, Medical] - See instructions Rosalio Holcomb II, MD [Staff Physician, Gastroenterology] - See instructions Activity Restrictions/Add. Instructions Additional Instructions/Restrictions: Please call Dr. Holcomb GI clinic in the morning and ask for a follow up appointment about your gallstones and bile duct. There are no findings on CT scan that would explain the symptoms in your left upper abdomen today. If you develop worsening abdominal pain, fevers, or any other new or worsening symptoms please return. Clinical Impressions Clinical Impression: Abdominal pain, left upper quadrant Cholelithiasis Qualifiers: Cholelithiasis location: gallbladder Cholecystitis presence: without cholecystitis Biliary obstruction: without biliary obstruction Qualified Code(s): K80.20 - Calculus of gallbladder without cholecystitis without obstruction Instructions Patient Instructions: DI for Acute Abdominal Pain Print Language Print Language: [place] Island[place] Discharge ED Provider: [place] Adult HPI General Chief complaint: Abdominal Pain Stated complaint: back pain, vomiting Time Seen by Provider: 01/23/25 18:06 Mode of Arrival: Ambulatory Source of Information: Patient Description of Symptoms (Recalled from ER Triage Doc. by RN): Pt was seen on the for abdominal pain, and presents today with c/o intense left upper abdominal pain that radiates to her back. Pt also c/o of nausea and vomitting. History of Present Illness HPI narrative: Is a 24-year-old female patient, with no significant past medical history, who is presenting to the emergency department today for evaluation of left upper quadrant abdominal pain. Patient states that this pains been going on over period of weeks to months. She was seen here in our emergency department recently and was discharged home. She states that she has tried MiraLAX at home and this did help to relieve her symptoms but she stopped taking this medication. She tells me that she has been multiple bowel movements daily but these consist of a rock hard balls of stool. she states that she has had associated nausea but no vomiting. No cough or production of phlegm. No diarrhea. She also is not experiencing any urinary symptoms such as dysuria, hematuria, or urinary frequency. Related Data Previous Rx's ?Medication ?Instructions ?Recorded ondansetron HCl 4 mg tablet 4 mg PO Q8H PRN nausea and 01/14/25 vomiting 5 days #30 tabs Allergies Allergy/AdvReac Type Severity Reaction Status Date / Time Penicillins Allergy Unknown Verified 01/23/25 15:51 [facility] reaction [facility] Disclaimer: The information contained in this section may have been updated after the patient was seen, as this information can be updated by other users. Medical History Heart murmur Surgical History H/O: Family History Other No significant family history Social History Smoking Status: Current every day smoker tobacco type: e-cigarettes second hand exposure: Yes alcohol intake: current substance use type: denies use current occupational status: unemployed Travel in the last 8 weeks?: None household members: family housing: apartment Have you lived/traveled outside US in past 30 days?: No Contact w/someone who lives/traveled outside US past 30 days?: No Exposure to someone with infectious disease in past 14 days?: No Do you have a fever (greater than 100.4 F or 38 C)?: No Have you tested positive for COVID-19?: No Exposed to someone with COVID-19 in past 14 days?: No Do you have a sore throat?: No Do you have a cough?: No Do you have any weakness?: No Do you have any diarrhea?: No Are you experiencing any unusual bleeding?: No Do you have any muscle aches/pain?: No Do you have any abdominal pain?: No Are you experiencing loss of taste or smell?: No Other Medical History Have you received the Flu Vaccine for this season: No Have you received the Pneumonia Vaccine: No ROS Obtained: Yes Systems reviewed as appropriate & no additional complaints except as documented Physical Exam General General appearance: other (See MDM) Respiratory Respiratory exam: Present other (See MDM) Cardiovascular Cardiovascular exam: Present other (See MDM) Neurological Exam Neurological exam: Present other (See MDM) Medical Decision Making Medical Records Medical records reviewed: Yes I reviewed the patient's medical records. Screening: Per USPSTF and CDC recommendations, given the prevalence of disease in our region, it is our hospital?s policy to screen for HIV and viral Hepatitis for all patients aged 18 and over and those with ongoing risk factors. Jose Inquiry Pt receiving controlled substance: No Jose was queried for this patient: No Vital Signs: 01/23/25 16:28 01/23/25 16:32 01/23/25 18:31 Temperature 97.4 F L Temperature Source Oral Pulse Rate 79 62 Pulse Rate [Right] 67 Respiratory Rate 20 18 Blood Pressure 130/88 147/108 H Blood Pressure [Right Arm] 144/87 H Blood Pressure Mean [Right Arm] 106 Blood Pressure Source [Right Arm] Automatic Cuff Blood Pressure Position Sitting Blood Pressure Position [Right Arm] Sitting 02 Sat by Pulse Oximetry 100 98 100 Oxygen Delivery Method Room Air Room Air Lab Data Lab Results 01/23/25 16:12: Urine Color Yellow, Urine Appearance Clear, Urine pH 7.0, Ur Specific [place] 1.015, Urine Protein 1+ A, Urine Glucose (UA) Negative, Urine Ketones Negative, Urine Blood Negative, Urine Nitrate Negative, Urine Bilirubin Negative, Urine Urobilinogen 0.2, Ur Leukocyte Esterase 1+ A, Urine WBC 5-10, Ur Squamous Epith Cells 10-20, Amorphous Sediment 2+ 01/23/25 17:59: Urine Color Yellow, Urine Appearance Clear, Urine pH 7.0, Ur Specific [place] 1.020, Urine Protein Trace, Urine Glucose (UA) Negative, Urine Ketones Negative, Urine Blood Negative, Urine Nitrate Negative, Urine Bilirubin Negative, Urine Urobilinogen 0.2, Ur Leukocyte Esterase Negative, Urine RBC None, Urine WBC 5-10, Ur Squamous Epith Cells 10-20, Urine Bacteria 2+ 01/23/25 18:30: WBC 11.6 H, RBC 4.11 L, Hgb 10.7 L, Hct 34.1 L, MCV 83.0, MCH 26.0 L, MCHC 31.4 L, RDW 17.3, Plt Count 341, MPV 9.8, Neut % (Auto) 72.9, Lymph % (Auto) 17.6, [place] % (Auto) 6.7, Eos % (Auto) 2.0, Baso % (Auto) 0.5, Neut # (Auto) 8.5 H, Lymph # (Auto) 2.0, [place] # (Auto) 0.8, Eos # (Auto) 0.2, Baso # (Auto) 0.1, Sodium 137, Potassium 3.9, Chloride 100, Carbon Dioxide 30, Anion Gap 10.9, BUN 12, Creatinine 0.70, Estimated Creat Clear 168, Estimated GFR 104, Est GFR ( Amer) 125, Glucose 69 L, Calcium 8.6, Total Bilirubin 0.5, AST 29, ALT 44, Alkaline Phosphatase 113, Total Protein 7.3, Albumin 3.9, Lipase 40, Serum HCG, Qual Negative 01/23/25 18:30 01/23/25 18:30 Orders (Tests/Meds): ED MEDICATIONS Discontinued Medications Generic Name Dose Route Start Last Admin Trade Name Freq PRN Reason Stop Dose Admin Iopamidol 75 ml 01/23/25 18:59 01/23/25 19:00 Iopamidol-370 (76%);100ml Bottle IV 01/23/25 19:00 75 ml ONCE ONE Administration Morphine Sulfate 4 mg 01/23/25 18:12 01/23/25 18:35 Morphine 4mg/Ml Syringe IV 01/23/25 18:13 4 mg ONCE ONE Administration Ondansetron HCl 4 mg 01/23/25 16:50 01/23/25 16:51 Ondansetron 4mg Odt SL 01/23/25 16:51 4 mg ONCE ONE Administration Ondansetron HCl 4 mg 01/23/25 18:12 01/23/25 18:35 Ondansetron 4mg/2ml Vial IV 01/23/25 18:13 4 mg ONCE ONE Administration Sodium Chloride 10 ml 01/23/25 18:59 01/23/25 19:00 Sodium Chloride 0.9% 10ml Syr (Rad Only) IV 01/23/25 19:00 10 ml ONCE ONE Administration ORDERS Category Date Time Status CT abdomen pelvis w con Stat Cat Scan 01/23/25 18:10 Completed CXR --portable [XR chest portable] Stat Exams 01/23/25 18:10 Completed POCUS Point of Care (ER Only) Stat Exams 01/23/25 19:56 Ordered CBC w/Auto Diff [Complete Blood Count Auto Diff] Stat Lab 01/23/25 18:30 Completed CMP [Comprehensive Metabolic Panel] Stat Lab 01/23/25 18:30 Results HCG Qualitative, Serum Stat Lab 01/23/25 18:30 Completed Lipase Stat Lab 01/23/25 18:30 Results Urinalysis and Microscopic Stat Lab 01/23/25 16:12 Completed Urinalysis and Microscopic Stat Lab 01/23/25 17:59 Completed Urine Culture Stat Micro 01/23/25 16:12 Received Medical Decision Narrative: In summary, this is a 24-year-old female patient who is presenting to the emergency department today for evaluation of left lower quadrant abdominal pain that has persisted over the course of the last several weeks to months. She has had some relief with MiraLAX at home but she stopped taking this medication for no good reason at all. She does not have any significant comorbidities that complicate her medical management or care. On initial evaluation of the patient they were resting comfortably in no acute distress and nontoxic in appearance. They are hemodynamically stable, saturating well room air, and are neurologically intact. On physical examination her heart and lungs are clear to auscultation bilaterally. She is appropriate alert and oriented with a GCS of 15. Her abdomen is soft and nontender to palpation. She has no lower extremity erythema or edema. She appears well-hydrated. Good capillary refill. Differential diagnosis includes gastritis, esophagitis, enteritis, cholecystitis, choledocholithiasis, pyelonephritis, urinary tract infection, pancreatitis, intra-abdominal abscess, among others. Workup is initiated with hematologic labs as well as a CT scan of the abdomen pelvis. Initial interventions included 4 mg of morphine and 4 mg of Zofran. Labs were personally interpreted by me and demonstrates a leukocytosis that is stable from prior at 11.6. No transfusion will anemia. CMP was interpreted by me as well and demonstrates no electrolyte derangements or evidence of acute kidney injury. Lipase is normal. hCG is negative. AST, ALT, alk phos, and bilirubin are all within normal limits. Urine is contaminated and the patient is not having any urinary tract symptoms so we will not treat her for urinary tract infection at this time. CT scan of the abdomen and pelvis was obtained in was personally interpreted by me and demonstrates a gallstone within the gallbladder. Official radiology read is in agreement and states that there is also a possible noncalcified stone in the common duct for which they have asked us to exclude biliary obstruction and ascending chondritis. The patient is not having any pain in the right upper quadrant. She also does not have hyperbilirubinemia, transaminitis, or elevation of alk phos. There is also no elevation of lipase. Therefore I do not feel that she is experiencing obstructive pathology within the biliary tree at this time. I did perform a bedside ultrasound and was unable to visualize the common bile duct but I do see that there were stones in the gallbladder. Additionally, CT scans do show that there is some ground glass opacities within the lingula that could represent atypical infection or aspiration pneumonitis. Patient has not had any fevers, chills, cough, or production of phlegm. Therefore I do not feel that this is clinically relevant and I do not feel inclined to treat her for community-acquired pneumonia at this time. Again, the patient's symptoms are only located on the left side and she is not having any right sided abdominal tenderness or pain. I do not feel that she is experiencing any active problems as a result of her cholelithiasis at this time. I have asked her to follow-up in the outpatient clinic with Dr. Holcomb for further workup of her chronic abdominal pain as well as for the gallstones noted on the scans. Patient acknowledges understanding of this plan. At this time all questions have been answered and all parties are agreeable with the decision to discharge home Procedures Miscellaneous Procedure Procedure Performed: Limited right upper quadrant ultrasound Indication: Left upper quadrant abdominal pain, gallstones noted on CT scan Identified structures: Gallbladder, gallbladder wall Findings: Sonographic Dupont sign: Absent Gallstones: Present Sludge: Absent Pericholecystic fluid: Absent Maximal gallbladder wall thickness (mm): 2.2 mm normal Common bile duct with (mm): Unable to identify Impression: Cholelithiasis without any evidence of cholecystitis Images were saved to permanent archive This study was technically adequate CPT: 26090-96 This study was performed by me and I personally interpreted all images/videos. Based on my clinical judgment these images were adequate and did not necessitate further imaging. Critical Care Critical Care Time Critical Care Time: No
[2025-01-23 20:19] VITALS: BP 127/90; PULSE 66; RESP 18; TEMP 36.5; O2SAT 96
--- NOTE | 2025-01-26 06:39 | PC.NURSE ---
Contaminated urine CX. No need for repeat as no urinary symptoms.
== END 2025-01-23 20:27 | disposition home or self-care (01) ==
PROVIDERS: Emergency Provider Student in an Organized Health Care Education/Training Program; PCP Physician Assistant
DX: R10.12 Left upper quadrant pain (principal); K80.20 Calculus of gallbladder without cholecystitis without obstruction; F17.210 Nicotine dependence, cigarettes, uncomplicated
CPT/HCPCS: 71045; 74177; 80053; 81001; 83690; 84703; 85025; 87086; 96374; 96375; 99284; J2270; J2405; Q0162; Q9967

== ENCOUNTER 2025-02-06 08:51 | Day surgery (SDC) | payer OTHER, SELFPAY ==
--- NOTE | 2025-02-02 12:58 | EXP.HP ---
History of Present Illness *Admission Date: 02/06/25 *History of present illness: Ms. Rivera is a 24-year-old female who is here for diagnostic EGD. For over a month she has had left upper abdominal pain that radiates into her left flank and across the upper abdomen. She does report heartburn and reflux daily. She has had bloating, gassiness and belching. She reports using [id number]-[id number]-[id number] Tums multiple times daily which does not help. She has had some nausea and intermittent vomiting. The examination is deemed medically necessary for diagnostic EGD. The patient has been seen, interviewed and examined prior to the procedure by both myself and the anesthesia provider. [facility] Disclaimer: The information contained in this section may have been updated after the patient was seen, as this information can be updated by other users. Medical History Sprain and strain of wrist Viral URI with cough Viral upper respiratory infection Contusion of hand, right Strep throat Hand injury Upper respiratory infection Abdominal pain, LUQ Ovarian cyst Exposure to COVID-19 virus Left knee sprain Abrasion of knee, left Acute left flank pain Foot pain, left Suicidal behavior with attempted self-injury Suicidal ideation Suicide attempt Suicidal thoughts Hematoma of left forearm Vaginal bleeding DUB (dysfunctional uterine bleeding) Abdominal pain Threatened miscarriage Ankle sprain and strain Nexplanon insertion Ovarian cyst Heart murmur Surgical History H/O: Family History Other No significant family history Social History Smoking Status: Current every day smoker tobacco type: cigarettes packs per day: 1 and e-cigarettes second hand exposure: Yes alcohol intake: current substance use type: denies use current occupational status: unemployed Travel in the last 8 weeks?: None household members: family housing: apartment Have you lived/traveled outside US in past 30 days?: No Contact w/someone who lives/traveled outside US past 30 days?: No Exposure to someone with infectious disease in past 14 days?: No Do you have a fever (greater than 100.4 F or 38 C)?: No Have you tested positive for COVID-19?: No Exposed to someone with COVID-19 in past 14 days?: No Do you have a sore throat?: No Do you have a cough?: No Do you have any weakness?: No Do you have any diarrhea?: No Are you experiencing any unusual bleeding?: No Do you have any muscle aches/pain?: No Do you have any abdominal pain?: No Are you experiencing loss of taste or smell?: No Other Medical History Have you received the Flu Vaccine for this season: No Have you received the Pneumonia Vaccine: No Review of Systems Review of Systems Review of systems (narrative): Negative *Cardiovascular Comments: Negative *Gastrointestinal Comments: Negative *Genitourinary Comments: Negative *Musculoskeletal Comments: Negative *Neurologic Comments: Negative Meds Home Medications and Allergies Home Medications ?Medication ?Instructions ?Recorded ?Confirmed ?Type calcium carbonate (Tums) 200 mg PO BID 01/26/25 02/06/25 History sertraline 50 mg tablet 50 mg PO DAILY PRN Anxiety 01/26/25 02/06/25 History promethazine 25 mg tablet 25 mg PO Q6H PRN Nausea And 02/06/25 02/06/25 History Vomiting New Prescriptions to Start Prescriptions: Allergies Allergy/AdvReac Type Severity Reaction Status Date / Time Penicillins Allergy Unknown Verified 02/06/25 09:40 allergy reaction Exam *Routine HEENT Exam Head: Present normocephalic Eye: Present EOMI and PERRL ENT: Present mucous membranes moist *Routine Neck Exam Neck: Present supple *Routine Respiratory Exam Respiratory: Present CTA bilaterally *Routine Cardiovascular Exam Cardiovascular: Present RRR *Routine Abdominal Exam Abdominal: Present soft and normoactive bowel sounds; Absent tenderness *Routine Rectal Exam Rectal:: deferred *Routine Genitalia Exam Genitalia:: deferred *Routine Extremities Exam Extremities: Absent cyanosis, clubbing or edema *Routine Skin Exam Skin: Present warm; Absent rash *Routine Neurological Exam Neurological: Present alert and oriented X3 Assessment and Plan *Assessment and plan (1) Epigastric pain: Status: Acute Category: Medical Code(s): R10.13 - Epigastric pain (2) Left flank pain: Status: Acute Category: Medical Code(s): R10.A2 - Flank pain, left side (3) Acid reflux: Status: Acute Category: Medical Code(s): K21.9 - Gastro-esophageal reflux disease without esophagitis (4) Heartburn: Status: Acute Category: Medical Code(s): R12 - Heartburn (5) Bloating: Status: Acute Category: Medical Code(s): R14.0 - Abdominal distension (gaseous) (6) Abdominal pain, left upper quadrant: Status: Acute Category: Medical Code(s): R10.12 - Left upper quadrant pain (7) Nausea & vomiting: Status: Acute Category: Medical Code(s): R11.2 - Nausea with vomiting, unspecified Plan A/P: 1. Left upper quadrant/left flank, epigastric pain with heartburn, reflux, nausea and bloating is the preprocedural diagnosis. The patient will be anesthetized/sedated using MAC sedation. The patient has been seen and examined. Cardiac and lung assessment prior to the examination is stable. Proceed with planned diagnostic EGD.
--- NOTE | 2025-02-02 13:18 | SUR.PREOP ---
no voicemail set up
[2025-02-06] VITALS (7 sets, daily range): BP systolic 110–120; BP diastolic 66–89; PULSE 65–88; RESP 16–18; TEMP 36.2–36.6; O2SAT 96–100; BMI 32.2
--- NOTE | 2025-02-06 07:05 | HMH.PROCNOTE ---
[facility] Procedure Note Date: 02/06/25 Time: 10:53 Procedure Note:: Upper Endoscopy Procedure Report: Esophagogastroduodenoscopy with cold biopsies Endoscopost: Rosalio Holcomb II, MD Referring Physician: SHAMA Cline Date of Procedure: February 06, 2025 Equipment: Olympus GIF-1100 standard upper endoscope Sedation: MAC sedation Indications: Ms. Rivera is a 24-year-old female who is here for diagnostic EGD. For over a month she has had left upper abdominal pain that radiates into her left flank and across the upper abdomen. She does report heartburn and reflux daily. She has had bloating and gassiness. She also reports nausea and early satiety. She reports using [id number] Tums multiple times daily which does not help. She has had some intermittent vomiting. The patient does report regular bowel function but has some intermittent incomplete bowel evacuation. She reports no dysphagia. This is her first upper endoscopy. The examination is deemed medically necessary for diagnostic EGD. Procedure: Prior to the procedure, a history and physical exam was performed, and patient's medications and allergies were reviewed. The risks, benefits and alternatives of the sedation and procedure were discussed with the patient. All questions were answered and informed consent was obtained. The patient was brought to the procedure room. Patient identification and proposed procedure were verified by the physician and the nurse. The patient was placed in a left lateral decubitus position and the scope was passed under direct vision. Throughout the procedure, the patient's blood pressure, pulse, and oxygen saturations were monitored continuously. The upper GI endoscopy was accomplished without difficulty. The patient tolerated the procedure well. Findings: The scope was passed directly into the upper esophagus and advanced to the third portion of the duodenum. The post bulbar duodenum, ampulla and duodenal bulb were normal with normal mucosa and conniventes. 2 cold biopsies were taken from the second portion of the duodenum for the disaccharidase assay. The scope was withdrawn through a normal duodenal bulb and pylorus into the stomach. There was linear reactive gastropathy of the antrum. The body and fundus of the stomach were grossly normal. Cold biopsies were taken from the antrum. Upon retroflexion there was a 3 to 4 cm medium sized hiatal hernia. The scope was then withdrawn into the esophagus. There was grade C?D reflux esophagitis (LA classification). There was no Putnam's or peptic stricture. The remainder of the esophageal mucosa was normal. Impression: 1. Grade C?D reflux esophagitis (LA classification) with medium sized 3 to 4 cm hiatal hernia 2. Mild linear reactive gastropathy Plan: I will follow-up the biopsies and disaccharidase assay. I would recommend initiation of Voquezna and I do feel that her left-sided abdominal pain is related obstipation and possibly splenic flexure syndrome. We will discuss additional treatment options.
[2025-02-06 09:46] LABS: Urine Pregnancy, HCG Qual. Negative (Negative)
[2025-02-06] MEDS: LACTATED RINGERS 1000ML 1,000 ML 50 ML IV (09:50)
--- NOTE | 2025-02-06 10:13 | P.PNANES_ITS ---
[facility] Disclaimer: The information contained in this section may have been updated after the patient was seen, as this information can be updated by other users. Medical History Sprain and strain of wrist Viral URI with cough Viral upper respiratory infection Contusion of hand, right Strep throat Hand injury Upper respiratory infection Abdominal pain, LUQ Ovarian cyst Exposure to COVID-19 virus Left knee sprain Abrasion of knee, left Acute left flank pain Foot pain, left Suicidal behavior with attempted self-injury Suicidal ideation Suicide attempt Suicidal thoughts Hematoma of left forearm Vaginal bleeding DUB (dysfunctional uterine bleeding) Abdominal pain Threatened miscarriage Ankle sprain and strain Nexplanon insertion Ovarian cyst Heart murmur Surgical History H/O: Family History Other No significant family history Social History Smoking Status: Current every day smoker tobacco type: cigarettes packs per day: 1 and e-cigarettes second hand exposure: Yes alcohol intake: current substance use type: denies use current occupational status: unemployed Travel in the last 8 weeks?: None household members: family housing: apartment Have you lived/traveled outside [place] in past 30 days?: No Contact w/someone who lives/traveled outside [place] past 30 days?: No Exposure to someone with infectious disease in past 14 days?: No Do you have a fever (greater than 100.4 F or 38 C)?: No Have you tested positive for COVID-19?: No Exposed to someone with COVID-19 in past 14 days?: No Do you have a sore throat?: No Do you have a cough?: No Do you have any weakness?: No Do you have any diarrhea?: No Are you experiencing any unusual bleeding?: No Do you have any muscle aches/pain?: No Do you have any abdominal pain?: No Are you experiencing loss of taste or smell?: No [facility] Anesthesia Checklist Patient Identification Patient Identification: Arm Band and Verbal (Name & ) Structural Data Admitted From: Home Planned Operative Procedure/s: EGD Consent for Planned Operative Procedure(s) Verified: Yes Verified Documents: Surgical Consent and History and Physical NPO Status Verified Time NPO: 00:00 Additional verifications Patient : No Anesthesia Reactions: Yes Airway Assessment Mallampati Score:: Class II Dentition: Poor Dentition Neurological Assessment Level of Consciousness: Awake, Alert and Appropriate Hx Seizures: No Numbness or tingling in extremities: No Anesthesia Plan Anesthesia Risk discussed: Yes Anesthesia Plan: Verified ASA Class: II Anesthesia Type: MAC
[2025-02-10 12:12] LABS: Interpretation Notes (.); Lactase 18.86 (>/= 14.0); Maltase 164.39 (>/= 110.0); Palatinase 12.38 (>/= 8.5); Reference Notes (.); Sucrase 43.35 (>/= 25.0)
== END 2025-02-06 12:13 | disposition home or self-care (01) ==
PROVIDERS: PCP Physician Assistant; Visit Provider Internal Medicine Gastroenterology
PROC: 0DJ08ZZ Inspection of Upper Intestinal Tract, Via Natural or Artificial Opening Endoscopic (ICD-10-PCS; CPT 43239; principal; 2025-02-06 11:00)
DX: K21.00 Gastro-esophageal reflux disease with esophagitis, without bleeding (principal); K31.89 Other diseases of stomach and duodenum; K44.9 Diaphragmatic hernia without obstruction or gangrene; F17.210 Nicotine dependence, cigarettes, uncomplicated; Z88.0 Allergy status to penicillin
CPT/HCPCS: 43239; 81025; 82657; J2003; J2704; J7120

== ENCOUNTER 2025-02-22 12:52 | Outpatient (CLI) | payer OTHER, SELFPAY ==
[2025-02-22 20:41] LABS: Coronavirus 19, PCR Not Detected (NotDetected); Influenza A, PCR Not Detected (NotDetected); Influenza B, PCR Not Detected (NotDetected)
== END 2025-02-22 23:59 ==
LOC: LAB.DROPOF 02-27 08:52
PROVIDERS: PCP Physician Assistant; Visit Provider Nurse Practitioner
DX: J06.9 Acute upper respiratory infection, unspecified (principal); J02.9 Acute pharyngitis, unspecified
CPT/HCPCS: 87631